=== PATIENT | male | born 1940 | race Caucasian/White ===

== ENCOUNTER 2017-01-01 05:26 | Day surgery (SDC) | payer MEDICARE ==
[~2017-01-01] VITALS: Ht 175.3 cm; Wt 84.3 kg
[2017-01-01] VITALS (14 sets, daily range): BP systolic 116–176; BP diastolic 63–95; PULSE 49–60; RESP 12–20; O2SAT 95–99
[~2017-01-01 05:26] MED LIST: ASPI-973 PO; ATOR20TA PO; CARV12.52 PO; Lactated Ringer's 1,000 ML IV SCH; METF500T4 PO; NITR0.4T6 SL; SACU1TAB7 PO; SPIR25TA3 PO
[2017-01-01] MEDS ORDERED: fentaNYL-PF 50 mCg/mL 2 mL Inj ONE (05:27)
[2017-01-01] MEDS ORDERED: Propofol 10,000 mCg/mL 20 mL Inj ONE (05:27)
[2017-01-01] MEDS ORDERED: CeFAZolin 2 Gm/50 mL D5W IV Premix IV ONE (06:00)
[2017-01-01] MEDS ORDERED: 0.9% Sodium Chloride 1,000 ML IV PRN (07:22)
[2017-01-01] MEDS ORDERED: CeFAZolin Inj 2 GM in IV Premix 1 EACH IV ONE (07:25)
[2017-01-01] MEDS ORDERED: CeFAZolin 2 Gm/50 mL D5W Duplex Bag IV ONE (10:12)
[2017-01-01 11:38] LABS: BASOPHILS % (AUTO) 0.3 % (0-3); EOSINOPHILS % (AUTO) 1.5 % (0-5); MONOCYTES % (AUTO) 9.1 % (4-12); Mean Corpuscular Hemoglobin 30.7 pg (27.0-35.0); Mean Corpuscular Volume 91.8 fL (81-100); NEUTROPHILS % (AUTO) 63.2 % (40-74); Platelet Count 215 bil/L (150-400)
[2017-01-01 11:54] LABS: INR 0.92 ratio
--- NOTE | 2017-01-01 12:14 | PCM.HPANE ---
Patient Data Date of Service: Jan 01, 2017 Surgeon Admitting Provider: Attending Provider:Uli Merchant MD Primary Care Physician:Hyun Obregon Other Provider:Liza Menjivar Anesthesia Reason for Visit Cardiomyopathy Ht/WT & BMI Height (Feet): 5 Height (Inches): 9.00 Weight (Kilograms): 84.300 Body Mass Index 27.53 Allergies Coded Allergies: aspirin (Verified Adverse Reaction, Unknown, GI DISTRESS, 01/01/17) currently takes ASA 81mg with food Past Anesthesia History Anesthesia History: Denies:: Anesthesia Reactions Diabetes History Hx Diabetes?: Yes Current Bedside Blood Glucose: 160 MRSA MRSA: No Medications Reported Medications Spironolactone 25 Mg Ytnzcp48.5 Mg PO DAILY #30 TABLET Ref 0 12/31/16 Metformin 500 Mg Msfrnw650 Mg PO DAILY Ref 0 12/31/16 Sacubitril/Valsartan (Entresto 49 mg-51 mg Tablet)49 Mg-51 Mg Tablet1 Each PO BID 12/31/16 Carvedilol 12.5 Mg Vzgmxp08.5 Mg PO BID Ref 0 12/31/16 Nitroglycerin SL 0.4 Mg Tab.subl0.4 Mg SL 05/29/16 Atorvastatin (Lipitor)20 Mg Ihlorl02 Mg PO DAILY Ref 0 05/29/16 Aspirin 81 Mg Bweuno19 Mg PO DAILY 05/29/16 Discontinued Reported Medications Metformin 500 Mg Dviedl629 Mg PO BID Ref 0 05/29/16 Lisinopril 10 Mg Yatkea78 Mg PO DAILY 30 Days Ref 0 05/29/16 Carvedilol 3.125 Mg Tablet3.125 Mg PO BID Ref 0 05/29/16 History History of ENT Problems?: Yes HEENT History: Positive for:: Dysphagia Denies:: Cataracts Glaucoma Sinus Problem Hx of Heart Problems?: Yes Cardiovascular History: Positive for:: Congestive Heart Failure Hypertension Other History/Comments cardiomyopathy ef 30-35%, nyha class III HF; SAYRA 0.86 Hx of Respiratory Problem?: No Hx Neurologic Problems?: No Hx of GI Problems?: No Musculoskeletal History: Positive for:: Back Injury Hx of Psycho/Social Problems?: No Hx Surgeries?: Yes (circumcision) Hx Any Other Health Problems?: Yes Other History: Denies:: Hospitalization History Blood Transfusions: Positive for:: Accept Blood Products? Denies:: Blood Transfusions Hx Diabetes: YesBedside Blood Glucose: 160 Hx Alcohol Use: NoAlcoholic Drinks Per Day: quit 1 drink vodka daily 3 months priorHx Substance Use: No Smoking Status: Former Smoker Never Smoker Have You Smoked inLast 12 mo: No Stop/Bang Treated for Sleep Apnea?: No Do You Have a CPAP Machine?: No S-Snoring: Do You Snore Loudly: Yes T-Tired: feel tired, fatigued: No O-Obsered: Observed not breath: No P-Blood Pressure: treated: Yes B- Body Mass Index > 35 kg/m2: No A- Age over 50: Yes N- Neck Large Circumference: No G- Gender Male: Yes LAZARO Risk Assessment: High Risk, =/>3 Yes LAZARO Category 2: Yes Risk Assessment Category Category 1A: Patient has history of documented sleep apnea, and HAS NOT received any narcotic, sedative or anesthesia administration during this stay. Category 1B: Patient has history of documented sleep apnea, and HAS received any narcotic , sedative or anesthesia administration during this stay Category 2: Patient has SUSPECTED Obstructive Sleep Apnea, and HAS received any narcotic , sedative or anesthesia administration during this stay. Category 3: Patient has SUSPECTED Obstructive Sleep Apnea and HAS NOT received narcotic, sedative or anesthesia administration during this stay. Category 4: Outpatient in Procedural Areas with known sleep apnea or who screen positive for High Risk via the STOP/BANG questionnaire. Exam Exam Vital Signs Vital Signs Date Time Temp Pulse Resp B/P Pulse Ox O2 Delivery O2 Flow Rate FiO2 01/01/17 11:33 36.6 49 16 149/63 97 Room Air General Appearance: Alert, Oriented X3, Cooperative, No Acute Distress HEENT/AIRWAY: MP 3 Lungs: Clear to Auscultation, Normal Air Movement Heart: Regular Rate/Rhythm, Murmur (III/ BART), Other (Bradycardia) Meds/Labs/Diagnostics Bedside Blood Glucose: 160 Labs Test 01/01/17 11:32 White Blood Count 7.3th/mm3 (3.8-10.1) Red Blood Count 4.01mil/mm3 (4.40-5.80) Hemoglobin 12.3g/dL (13.8-17.2) Hematocrit 36.8% (41.0-50.0) Mean Corpuscular Volume 91.8fL (81-100) Mean Corpuscular Hemoglobin 30.7pg (27.0-35.0) Mean Corpuscular Hemoglobin Concent 33.4% (32.0-37.0) Red Cell Distribution Width 12.4% (12.3-15.4) Platelet Count 215bil/L (150-400) Neutrophils (%) (Auto) 63.2% (40-74) Lymphocytes (%) (Auto) 25.8% (14-46) Monocytes (%) (Auto) 9.1% (4-12) Eosinophils (%) (Auto) 1.5% (0-5) Basophils (%) (Auto) 0.3% (0-3) Plan Impression Patient chart reviewed, patient interviewed and anesthestic plan with risks, benefits, and alternatives discussed, and informed consent obtained. NPO Status: >8h ASA Physical Status: ASA3 Severe Disease Anesthetic Plan: MAC Bene/Risks/Altern/Consents: Yes HP Complete Prior to Induction: Yes Ambrocio Vargas MD Jan 01, 2017 12:14
[2017-01-01] MEDS ORDERED: 0.9% Sodium Chloride 250 ML ONE (12:54)
[2017-01-01] MEDS ORDERED: Bupivacaine-MPF 0.5% 30 mL Inj ONE (12:54)
[2017-01-01] MEDS ORDERED: Heparin 5,000 Units/500 mL NS Premix IV ONE (12:54)
--- NOTE | 2017-01-01 13:40 | NUR ---
[facility] Patient admitted to [facility] bed 7 at 1115. Daughter at bedside. Patient denies pain. HL X 2 placed and labs obtained. Consent in chart and signature confirmed. History and medications reviewed. Pre-procedure teaching done and questions answered.
[2017-01-01] MEDS: 0.9% Sodium Chloride 1,000 ML IV SCH ×2 (15:04→20:36)
[2017-01-01] MEDS ORDERED: Ondansetron 2 mg/mL 2 mL Inj IVPUSH PRN (15:05)
[2017-01-01] MEDS ORDERED: HYDROcodone-APAP 5-325 mg Tablet PO PRN (15:05)
--- NOTE | 2017-01-01 15:57 | PCM.ANEP1 ---
Post Anesthesia Phase 1 PACU Phase 1 Assessment Date of Service: Jan 01, 2017 Vital Signs Vital Signs Date Time Temp Pulse Resp B/P Pulse Ox O2 Delivery O2 Flow Rate FiO2 01/01/17 15:50 60 12 137/78 97 Room Air 01/01/17 15:50 60 12 137/78 97 Room Air 01/01/17 15:45 60 14 116/75 95 Room Air 01/01/17 15:40 60 12 127/66 96 Room Air 01/01/17 11:33 36.6 49 16 149/63 97 Room Air Anesthetic Administered: MAC Level of Alertness: Awake, talking CH's with Equal Strength: Yes Pain: No Nausea or Vomiting: No Oxygen Delivery: Room Air Lungs: Clear to Auscultation, Normal Air Movement Ambrocio Vargas MD Jan 01, 2017 15:57
--- NOTE | 2017-01-01 15:57 | PCM.ANEP2 ---
Post Anesthesia Evaluation ASA/CMS Post Anesthesia Date of Service: Jan 01, 2017 VS in Patient's Normal Range?: Yes Resp Stable; Airway Patent?: Yes CV Function & Hydration Stable: Yes Mental Status Recovered?: Yes Pain control Satisfactory?: Yes N/V Control Satisfactory?: Yes Ambrocio Vargas MD Jan 01, 2017 15:57
--- NOTE | 2017-01-01 16:11 | OP ---
[address] [address] OPERATIVE REPORT PATIENT: NICKY GOLD : 1940 MR#: [id number] ADMIT: 01/01/2017 JOB ID: [id number] DATE OF SURGERY: 01/01/2017 PREOPERATIVE DIAGNOSIS(ES): 1. Severe dilated cardiomyopathy with ejection fraction 30%-35%. 2. Left bundle branch block with QRS duration 179 msec. 3. [place] [employer] class 3 heart failure symptoms. POSTOPERATIVE DIAGNOSIS(ES): 1. Severe dilated cardiomyopathy with ejection fraction 30%-35%. 2. Left bundle branch block with QRS duration 179 msec. 3. [place] [employer] class 3 heart failure symptoms. PROCEDURES PERFORMED: 1. Biventricular ICD implantation with placement of a multi lead ICD generator, RV ICD lead, right atrial lead and coronary sinus left ventricular lead. 2. Coronary sinus venogram. 3. Fluoroscopy. SURGEON: Uli Merchant MD, electrophysiology attending. STORES ASSISTANT: Osman Petty PA-C IMPLANTED DEVICES: 1. [employer] pulse generator, model CD 3369-40Q, serial #[id number]. 2. RV lead [employer], 2088 TC, 52 cm, serial #[id number]. 3. RV lead [employer] 7122Q, 58 cm, serial #[id number]. 4. LV lead, [employer] 1458Q, 86 cm, [id number]. ANESTHESIA: Monitored anesthesia care was provided by the anesthesiology service. INDICATION: The patient is a pleasant 76-year-old man with severe dilated cardiomyopathy, heart failure symptomology, wide left bundle branch block. After discussion of the risks and benefits of Bi V ICD implantation, he opted to proceed. PROCEDURE DESCRIPTION: Following informed consent, the patient was taken to the EP laboratory in a fasting nonsedated state, where he was prepped and draped in the usual sterile fashion. The left infraclavicular region was infiltrated with 40 cc of a 50/50 mixture of bupivacaine and lidocaine. Once adequate anesthesia had been achieved, a 3 cm transverse incision was performed 2 cm below the clavicle. Dissection was carried down to the pectoralis fascia and a pocket was then fashioned using a combination of electrocautery and blunt dissection. Once adequate anesthesia had been achieved, access to the left axillary vein was gotten over the first rib with a micropuncture needle three times with three 0.035, 3 mm J guidewires. Over the first of these, a 7-Sudanese tear-away sheath was advanced. Once it had been removed, an active fixation ICD was advanced to the RV outflow tract and ultimately to the RV apex. The lead was affixed in position using suction fixation screw. The lead was connected to the external analyzer and demonstrated appropriately sensed R waves, impedance, capture threshold. The lead was checked to 10 V and there was no evidence of diaphragmatic stimulation. Attention was now paid to placement of the coronary sinus left ventricular lead over another of the previously deployed J guidewires. A 9-Sudanese tear-away sheath was advanced. Once the guidewire was removed, the [employer] delivery sheath was delivered over a Super CS decapolar EP catheter to engage the coronary sinus. The EP catheter was removed and a manual injection of contrast was performed delineating a large posterolateral branch off of the coronary sinus at the 3 o'clock position along the mitral annulus. This was chosen as our position of choice. A quadripolar LV lead was brought to the field and advanced through the branch of choice over a Whisper wire. The lead was connected to the external analyzer and demonstrated appropriately sensed R waves, impedance, capture threshold. It was checked to 10 V. There was no evidence of diaphragmatic stimulation. The Whisper wire was removed and the finishing stylet was placed. The short 9-Sudanese sheath was slit loose. The long sheath was maintained in place for stability while the atrial lead was placed. Attention was now on placement of the right atrial lead. Over the last of the previously deployed J guidewires, a 6-Sudanese tear-away sheath was advanced. Once the guidewire was removed, an active fixation was advanced to the right atrial appendage. It was affixed in position using an associated fixation screw and this was connected to the external analyzer and demonstrated appropriately sensed P waves, impedance, capture threshold. It was checked to 10 V and there was no evidence of diaphragmatic stimulation. Finally, the long sheath was slit loose monitoring the stability of the LV lead. The lead maintained its position. Once the position and redundancy of all three leads had been confirmed with multiple fluoroscopic views, the leads were anchored to the prepectoralis fascia using their associated anchoring sleeves and two Ethibond sutures. The pocket was copiously irrigated with antibiotic solution. It was connected to generator. The generator was placed in the pocket and affixed to the floor of the pocket using 1-0 Ti-Cron suture. The incision was then closed with running layers of absorbable suture. The wound was dressed with skin adhesive and a small dressing. At the end the procedure, the needle, sponge, and instrument counts were all correct. COMPLICATIONS: None. ESTIMATED BLOOD LOSS: Negligible. DEVICE MEASURED DATA: 1. Right atrial lead 3.3 mV, 440 ohms, 0.75 V at 0.5 msec. 2. RV lead 12 mV, 450 ohms, 0.5 V at 0.5 msec. 3. LV lead, 390 ohms, 0.75 V at 0.5 msec (T4 to RV coil). FINAL PROGRAM PARAMETERS: 1. DDDR 60-130 beats per minute. 2. VF zone at 200 beats per minute. 3. VT zone at 171 beats per minute. 4. VT monitor zone at 150 beats per minute. IMPRESSION: Successful Bi V ICD implantation. PLAN: 1. Stat portable chest x-ray. 2. PA and lateral chest x-ray in the morning. 3. IV Ancef through tomorrow. 4. Keflex x7 days. 5. Wound check in one week. ATTENDING STATEMENT: Uli Merchant MD, electrophysiology attending, was present for and supervised/performed all aspects of this procedure.
--- NOTE | 2017-01-01 16:21 | DRSVH ---
PROCEDURE: X-RAY CHEST ONE VIEW, PORTABLE ([id number]) INDICATIONS: For new leads placed TECHNIQUE: One view of the chest was acquired. COMPARISON: [facility], CR, XR CHEST 2VW, 10/18/2015, 14:01. FINDINGS: Surgical changes and devices: Left-sided pacer. Lungs and pleura: No pleural effusions or pneumothorax. Lungs are clear. Mediastinum: Mediastinal contours appear normal. Heart size is normal. Bones and chest wall: No suspicious bony lesions. Overlying soft tissues appear unremarkable. IMPRESSION: No acute process. Dictated by: Audrey Martin M.D. on 01/01/2017 at 16:17 Approved by: Audrey Martin M.D. on 01/01/2017 at 16:19
--- NOTE | 2017-01-01 18:41 | NUR ---
[facility] Patient return to [facility] from label folder at 1540. Daughter at bedside. Patient denies pain. Left chest incision without bleeding or hematoma. Ice pack X 2 hours with HOB up 45%. Chest X-Ray and ECG12 complete. Patient ate dinner and voids pr urinal. Left arm sling placed prior to transfer. Transfer by to room 2022 at 1815. Report to receiving RN.
[2017-01-01] MEDS: SACUBITRIL PO SCH (20:30)
[2017-01-01] MEDS: VALSARTAN PO SCH (20:30)
--- NOTE | 2017-01-01 21:49 | NUR ---
POSTOP TRANSFER TO [facility] Pt arrived to [facility] from [facility] just before shift change A&Ox3, off bedrest and able to ambulate in the room. Dressing to the left upper chest was tender and slightly raised, but CDI. Dressing to be changed in the AM by RN. HR paced @ 60, No c/o pain, SOB, or discomfort. No other issues noted at this time.
[2017-01-01] MEDS: CeFAZolin Inj 1 GM in IV Premix 1 EACH IV SCH (22:22)
[2017-01-02 00:10] VITALS: BP 158/83; PULSE 60; RESP 18; O2SAT 97
[2017-01-02 02:15] LABS: APPEARANCE,URINE CLEAR (CLEAR,HAZY); COLOR,URINE STRAW (YELLOW); OCCULT BLOOD,URINE NEGATIVE (NEGATIVE); UROBILINOGEN,URINE NORMAL (NORMAL)
[2017-01-02 04:13] VITALS: BP 147/79; PULSE 61; RESP 18; O2SAT 96
[2017-01-02] MEDS ORDERED: CeFAZolin Inj 1 GM in IV Premix 1 EACH IV SCH (04:31)
[2017-01-02 06:00] VITALS: PULSE 60
[2017-01-02 08:00] VITALS: PULSE 61
--- NOTE | 2017-01-02 08:19 | DRSVH ---
PROCEDURE: X-RAY CHEST, TWO VIEWS ([id number]) INDICATIONS: For new lead placement TECHNIQUE: 2 views of the chest were acquired. COMPARISON: [facility], CR, XR CHEST 1VW (PORTABLE), 01/01/2017, 15:57. [facility], CR, XR CHEST 2VW, 10/18/2015, 14:01. FINDINGS: Surgical changes and devices: Stable positioning of left chest AICD. Lungs and pleura: No pleural effusions or pneumothorax. Lungs are clear. Chronic elevation right h emidiaphragm. Mediastinum: Mediastinal contours are normal. Heart size is normal. Bones and chest wall: No suspicious bony abnormalities. Soft tissues appear unremarkable. IMPRESSION: Stable chest post pacer placement. Dictated by: Paul Majano Jose Interpreted: Jessica Ochoa MD on 01/02/2017 at 8:18 Transcribed by: RADHA on 01/02/2017 at 8:19 Approved by: Jessica Ochoa M.D. on 01/02/2017 at 9:07
[2017-01-02] MEDS: VALSARTAN PO SCH (08:30)
[2017-01-02] MEDS: SACUBITRIL PO SCH (08:30)
--- NOTE | 2017-01-02 09:05 | PCM.DIMED ---
Discharge Instructions Date of Service Jan 02, 2017 Dates of Hospitalization Discharge Diagnosis Discharge Diagnosis Nonischemic Cardiomyopathy Left Bundle Branch Block Hypertension Diabetes Diet Heart Healthy, Diabetic Activity Other (Keep incision dry one day. Do not extend left elbow high above shoulder for one month. Do not lift, push or pull more than 10 lbs with the left arm for one month.) Call your provider Fever or Chills, Bleeding, Excessive diarrhea Patient Instructions Follow-up in: 1 week Mid-level Provider (F9): Osman Petty PA-C Follow-up with Mid-level in: 6 weeks Osman Petty PA-C Jan 02, 2017 09:05
[2017-01-02 09:15] VITALS: BP 161/84; PULSE 76; RESP 16; O2SAT 96
[2017-01-02] MEDS ORDERED: CEPH500C PO (09:23)
--- NOTE | 2017-01-02 09:56 | NUR ---
Arm sling Pt states he would like to keep sling on, although said he could take off now. Pt stated he lives with daughter and takes care of twin 3 yo grandchildren and 8 year old. Stated it would help him remember to protect his pacer site. Care continues.
[2017-01-02] MEDS ORDERED: CeFAZolin 2 Gm/50 mL D5W IV Premix IV ONE (10:00)
--- NOTE | 2017-01-02 10:31 | DIS ---
[address] [address] DISCHARGE SUMMARY PATIENT: NICKY GOLD : 1940 MR#: [id number] ADMIT: 01/01/2017 JOB ID: [id number] DIS: REASON FOR ADMISSION: Biventricular ICD implant. CHIEF COMPLAINT: Exertional dyspnea and fatigue. BRIEF HISTORY: The patient, a pleasant 76-year-old man with a severe nonischemic cardiomyopathy and an LV ejection fraction of 30% to 35%, has a left bundle branch block and exertional fatigue. He was advised of his risk of cardiac arrest, as well as the possible benefits of biventricular pacing to resynchronize the ventricles. COURSE IN HOSPITAL: The patient was admitted through the SICU and taken to the catheterization laboratory, where he received the biventricular, 3-lead pacing ICD system without incident. He was then taken back to the [facility] for recovery from sedation and then transferred up to the [facility] for overnight care, where he did well. In the morning he did not have much pain at the ICD site, it was closed and dry. There was no hematoma. Device evaluation showed excellent capture and sensing thresholds. Chest x-ray revealed no pneumothorax, and good lead positions were maintained. He felt well for discharge home and denied lightheadedness, dyspnea, or chest pain. DISPOSITION: The patient was discharged home in good condition with a followup appointment at the [facility] Cardiology office in one week. He was asked not to extend his left elbow high above his shoulder for one month and to not lift, push, or pull more than 10 pounds with the left arm for one month. He will follow his heart healthy and diabetic diet, and take medications as prescribed. DISCHARGE MEDICATIONS: 1. Cephalexin 500 mg b.i.d. for 1 week. 2. Aspirin 81 mg daily. 3. Atorvastatin 20 mg daily. 4. Carvedilol 12.5 mg b.i.d. 5. Metformin 500 mg daily. 6. Nitroglycerin sublingual 0.4 mg p.r.n. chest pain. 7. Entresto 49 mg/51 mg tablet 1 b.i.d. 8. Spironolactone 12.5 mg daily. FINAL DIAGNOSES: 1. Severe nonischemic cardiomyopathy. 2. Left bundle branch block. 3. Diabetes. 4. Hypertension.
--- NOTE | 2017-01-02 10:51 | NUR ---
Discharge Patient discharged at approximately 1040. Pt stated his daughter would be here at 1130 with his clothes and to take him home. Patient given educational material on Pacemaker and Pacemaker booklet, next dose to taken for all medications including new prescription clearly written with dates and times. Pt acknowledged and understood information. IV's DC'd with catheter intact. Tele DC'd patient monitor notified. Addendum: 01/02/17 at 1213 by MAHAD PICKETT RN Patient's daughter just arrived at 1212 to take patient home. Escorted by RAYMOND to the door.
[2017-01-02] MEDS: 0.9% Sodium Chloride 1,000 ML IV SCH (11:04)
[2017-04-11] MEDS ORDERED: FUR20 PO (16:21)
== END 2017-01-02 12:12 | disposition home or self-care (01) ==
LOC: SOUO 05:26 → PCC 18:32 → SOUO 01-02 12:12
PROVIDERS: ATTEND Internal Medicine Cardiovascular Disease
DX: I42.0 Dilated cardiomyopathy (principal); Z00.6 Encounter for examination for normal comparison and control in clinical research program; I44.7 Left bundle-branch block, unspecified; I50.9 Heart failure, unspecified; I25.119 Atherosclerotic heart disease of native coronary artery with unspecified angina pectoris; I12.9 Hypertensive chronic kidney disease with stage 1 through stage 4 chronic kidney disease, or unspecified chronic kidney disease; E11.22 Type 2 diabetes mellitus with diabetic chronic kidney disease; N18.9 Chronic kidney disease, unspecified; Z79.84 Long term (current) use of oral hypoglycemic drugs; E78.5 Hyperlipidemia, unspecified; I35.0 Nonrheumatic aortic (valve) stenosis; Z79.82 Long term (current) use of aspirin
CPT/HCPCS: 33225; 33249; 36415; 71010; 71020; 80048; 81000; 85025; 85610; 93005; 99152; 99153; C1769; C1777; C1882; C1892; C1898; C1900; J0690; J1644; J3010; J7050; Q9967

== ENCOUNTER 2017-01-26 11:51 | Emergency (ER) | payer MEDICARE ==
[~2017-01-26] VITALS: Ht 175.3 cm; Wt 81.8 kg
[~2017-01-26 11:51] MED LIST changes: +CEPH500C PO; -Lactated Ringer's 1,000 ML IV SCH
[2017-01-26 11:54] VITALS: BP 181/86; PULSE 60; RESP 14; O2SAT 98
--- NOTE | 2017-01-26 12:17 | ED.REPORT ---
HPI-Abd Pain M 40 and Over Date of Service Jan 26, 2017 ED Provider: Amari Montiel MD Pt is a 76 year old male with a hx of DM, LBBB, and recent pacemaker insertion presenting to the ED complaining of vomiting onset 2 days ago. He denies diarrhea, headache, runny nose, cough, recent sick contacts. He states that he has been unable to sleep due to the vomiting. He last vomited at 0900 today. Nursing Notes Stated Complaint: VOMITING Chief Complaint: Male Abdominal Pain Nursing Notes Reviewed: Yes Allergies: Coded Allergies: aspirin (Verified Adverse Reaction, Unknown, GI DISTRESS, 01/26/17) currently takes ASA 81mg with food Scheduled Aspirin (Aspirin) 81 Mg Tablet 81 MG PO DAILY Atorvastatin (Lipitor) 20 Mg Tablet 20 MG PO DAILY Carvedilol (Carvedilol) 12.5 Mg Tablet 12.5 MG PO BID Metformin (Metformin) 500 Mg Tablet 500 MG PO BID Sacubitril/Valsartan (Entresto 49 mg-51 mg Tablet) 49 Mg-51 Mg Tablet 1 EACH PO BID Spironolactone (Spironolactone) 25 Mg Tablet 12.5 MG PO Q2DAY Scheduled PRN Ondansetron ODT (Zofran ODT) 4 Mg Tablet 4 MG PO Q4H PRN PRN For Nausea Miscellaneous Medications Nitroglycerin SL (Nitroglycerin SL) 0.4 Mg Tab.subl 0.4 MG SL General Time Seen by MD: 12:15 Chief Complaint Other (Vomiting ) Hx Obtained From: Patient Arrived By: Walk-in Sudden in Onset?: No Onset Occurred: 2 days ago Symptom Duration: Since onset Progression since Onset: Unchanged Severity: Current: No pain currently Severity: Maximum: No pain Recent Healthcare: No recent doctor visit, No recent hospitalization, Previous surgery Similar Sx Previous: No Past Medical History Past Medical History Reported: LBBB, cardiomyopathy, kidney problems Past Surgical History Recent pacemaker/defibrillator insertion Smoking History Former Smoker, Never Smoker Ambulatory Status Independent Review of Systems Respiratory: Denies: Non-productive cough GI: Reports: Vomiting, Denies: Diarrhea Complete sys rev & neg: except as marked. Ears / Nose / Throat: Denies: Nasal congestion Neurologic: Denies: Headache Physical Exam Initial Vital Signs Vital Signs (First) Date Time Temp Pulse Resp B/P Pulse Ox O2 Delivery O2 Flow Rate FiO2 01/26/17 11:54 36.5 60 14 181/86 98 Room Air Initial VS: Reviewed Head / Eyes: Atraumatic, Normocephalic, PERRL ENT: Mucous membranes moist, Conjunctiva normal, No scleral icterus Neck: Supple, Non-tender, Full range of motion Skin: Warm, Dry, No cyanosis Neurologic: Alert, Oriented, Nonfocal Psychiatric: Mood/affect normal, Behavior normal, Normal thought content General/Constitutional: Awake, Alert, No acute distress, Well appearing Respiratory / Chest: Breath sounds NL, Breath sounds = bilat, No respiratory distress, No rales, No rhonchi, No wheezing Cardiovascular: Heart rate NL Heart Sounds / Murmur: Positive: Systolic murmur present.. (III/) Abdomen: Atraumatic, No guarding, No rebound Tenderness/Guarding/Rebound: Positive: Tender diffuse Interpretation & Diagnostics Lab Results Interpretation Result Diagram: 01/26/17 1258 01/26/17 1258 Test 01/26/17 12:58 White Blood Count 14.0th/mm3 (3.8-10.1) Red Blood Count 4.53mil/mm3 (4.40-5.80) Hemoglobin 13.7g/dL (13.8-17.2) Hematocrit 39.8% (41.0-50.0) Mean Corpuscular Volume 87.9fL (81-100) Mean Corpuscular Hemoglobin 30.2pg (27.0-35.0) Mean Corpuscular Hemoglobin Concent 34.4% (32.0-37.0) Red Cell Distribution Width 12.9% (12.3-15.4) Platelet Count 214bil/L (150-400) Neutrophils (%) (Auto) 75.5% (40-74) Lymphocytes (%) (Auto) 13.7% (14-46) Monocytes (%) (Auto) 10.4% (4-12) Eosinophils (%) (Auto) 0.1% (0-5) Basophils (%) (Auto) 0.1% (0-3) Sodium Level 140mEq/L (134-144) Potassium Level 3.7mEq/L (3.5-5.2) Chloride Level 96mEq/L (97-108) Carbon Dioxide Level 27mmol/L (18-29) Blood Urea Nitrogen 29mg/dL (8-27) Creatinine 1.25mg/dL (0.76-1.27) Estimat Glomerular Filtration Rate 60mL/min (>59) Glucose Level 187mg/dL (60-99) Calcium Level 9.5mg/dL (8.5-10.1) Magnesium Level 1.7mg/dL (1.6-2.6) Total Bilirubin 1.7mg/dL (0.0-1.2) Aspartate Amino Transf (AST/SGOT) 18U/L (0-50) Alanine Aminotransferase (ALT/SGPT) 14U/L (0-44) Alkaline Phosphatase 78U/L (25-160) Total Protein 7.7g/dL (6.4-8.4) Albumin 4.1g/dL (3.4-5.0) Lipase 32U/L (13-60) ECG Interpretation ECG Interpretation: Atrial-sensed ventricular-paced rhythm. Time: 12:16 Interpreted by: ED physician Normal ECG Interpretation: Normal rate (60) Re-Eval/Medical Decision Time of Eval: 14:45 Patient Status: Condition improved Re-Evaluation/Progress Note: Pt reports that he is still nauseated, but does not feel like he will vomit, and has not vomited since he arrived in the ED. Counseled Regarding: Diagnosis, Lab results, Need for follow-up, When/why to return to ED Discharge & Departure Primary Impression: Nausea & vomiting Vomiting type: unspecified Vomiting Intractability: non-intractable Qualified Code: R11.2 - Nausea with vomiting, unspecified Disposition: Home Vital Signs - All Vital Signs Date Time Temp Pulse Resp B/P Pulse Ox O2 Delivery O2 Flow Rate FiO2 01/26/17 14:15 36.7 60 189/79 96 Room Air 01/26/17 11:54 36.5 60 14 181/86 98 Room Air )( All Prior VS Reviewed: Yes Condition: Improved Patient Instructions: Acute Nausea and Vomiting (ED) Additional Instructions: No dangerous cause for the nausea and vomiting is discovered today. I recommend oral hydration by taking small sips of clear liquids frequently. Use ondansetron as needed for nausea. Follow-up in 2 or 3 days if not significantly improved, sooner if worse. Referrals: Hyun Obregon (PCP) ShondaUli MD Attestation Portions of this note were transcribed by Mirna Rodriguez. I, Dr. Montiel personally performed the history, physical exam and medical decision-making; I reviewed and confirmed the accuracy of the information in the transcribed note. Signed by: Levi Varela, 01/26/2017 and 1449. copies to: Hyun Obregon; Uli Merchant MD, Kirk H MD Jan 26, 2017 12:17 MIRNA RODRIGUEZ Jan 26, 2017 12:23
[2017-01-26] MEDS ORDERED: 0.9% Sodium Chloride 1,000 ML IV ONE (12:23)
[2017-01-26] MEDS: Ondansetron 2 mg/mL 2 mL Inj IVPUSH PRN ×2 (12:52→14:47)
[2017-01-26 13:16] LABS: BASOPHILS % (AUTO) 0.1 % (0-3); EOSINOPHILS % (AUTO) 0.1 % (0-5); MONOCYTES % (AUTO) 10.4 % (4-12); Mean Corpuscular Hemoglobin 30.2 pg (27.0-35.0); Mean Corpuscular Volume 87.9 fL (81-100); NEUTROPHILS % (AUTO) 75.5 % (40-74); Platelet Count 214 bil/L (150-400)
[2017-01-26 13:38] LABS: Magnesium 1.7 mg/dL (1.6-2.6)
[2017-01-26 14:15] VITALS: BP 189/79; PULSE 60; O2SAT 96
[2017-01-26] MEDS ORDERED: ONDA4TAB9 PO (14:46)
[2017-04-11] MEDS ORDERED: FUR20 PO (16:21)
== END 2017-01-26 14:48 | disposition home or self-care (01) ==
LOC: SED 11:51
DX: R11.2 Nausea with vomiting, unspecified (principal); I42.9 Cardiomyopathy, unspecified; Z79.82 Long term (current) use of aspirin; Z79.84 Long term (current) use of oral hypoglycemic drugs; Z87.891 Personal history of nicotine dependence; Z95.810 Presence of automatic (implantable) cardiac defibrillator; Z88.8 Allergy status to other drugs, medicaments and biological substances
CPT/HCPCS: 36415; 80053; 83690; 83735; 85025; 93005; 96361; 96374; 96376; 99285; J2405; J7030

== ENCOUNTER 2017-02-05 10:09 | Inpatient (IN) | payer MEDICARE ==
[~2017-02-05] VITALS: Ht 175.3 cm; Wt 80.3 kg
[2017-02-05] VITALS (10 sets, daily range): BP systolic 99–154; BP diastolic 43–74; PULSE 57–66; RESP 13–20; O2SAT 97–100
[~2017-02-05 10:09] MED LIST changes: -CEPH500C PO; +ONDA4TAB9 PO
--- NOTE | 2017-02-05 10:36 | ED.REPORT ---
HPI-GI Bleed Date of Service Feb 05, 2017 ED Provider: Amari Montiel MD The patient is a 76 year old male with history of diabetes mellitus and hypertension who was sent to the emergency department from clinic today for low blood pressure and concern for anemia. The patient had experienced 2 days of abdominal pain, back pain, nausea, vomiting, and black stools. He has not had a bowel movement or vomited in 2 days. Today the patient feels like lightheaded and generally weak. The lightheadedness is worse with standing. He fell today but denies any injuries. He is not on any blood thinners. He does not take NSAIDS regularly. Nursing Notes Stated Complaint: WEAK/BLACK STOOL Chief Complaint: General Complaint Nursing Notes Reviewed: Yes Allergies: Coded Allergies: aspirin (Verified Adverse Reaction, Unknown, GI DISTRESS, 01/26/17) currently takes ASA 81mg with food Scheduled Aspirin (Aspirin) 81 Mg Tablet 81 MG PO DAILY Atorvastatin (Lipitor) 20 Mg Tablet 20 MG PO DAILY Carvedilol (Carvedilol) 12.5 Mg Tablet 12.5 MG PO BID Metformin (Metformin) 500 Mg Tablet 500 MG PO BID Sacubitril/Valsartan (Entresto 49 mg-51 mg Tablet) 49 Mg-51 Mg Tablet 1 EACH PO BID Spironolactone (Spironolactone) 25 Mg Tablet 12.5 MG PO Q2DAY Miscellaneous Medications Nitroglycerin SL (Nitroglycerin SL) 0.4 Mg Tab.subl 0.4 MG SL General Time Seen by Provider: 10:43 Chief Complaint Chief Complaint: Other (low blood counts) Arrived By: Walk-in Onset Occurred: 5 days ago Symptom Duration: 2 days Progression Since Onset: Resolved Past Medical History Past Medical History Reported: LBBB, cardiomyopathy, kidney problems Diabetes mellitus Hypertension Past Surgical History Recent pacemaker/defibrillator insertion Family History Noncontributory Smoking History Former Smoker, Never Smoker Social History Other Social History: Local resident Ambulatory Status Independent Review of Systems Constitutional: Reports: Weakness - generalized GI: Reports: Abdominal pain (resolved now), Melena (resolved now), Nausea ( resolved now), Vomiting (resolved now) Neurologic: Reports: Lightheaded, Weakness Complete sys rev & neg: except as marked. Musculoskeletal: Reports: Back pain (resolved now) Physical Exam Initial Vital Signs Vital Signs (First) Date Time Temp Pulse Resp B/P Pulse Ox O2 Delivery O2 Flow Rate FiO2 02/05/17 10:18 36.3 60 16 99/53 98 Room Air Initial VS: Reviewed ENT: Mucous membranes moist, No scleral icterus Neck: Supple, Non-tender, Full range of motion Lymphatic: No lymphadenopathy Extremities: Vascular intact, Neuro intact Skin: Warm, Dry, No cyanosis Neurologic: Alert, Oriented, Nonfocal Psychiatric: Mood/affect normal, Behavior normal, Normal thought content General/Constitutional: Awake, Alert, Cooperative Appearance / Presentation: Positive: Pale Respiratory / Chest: Atraumatic, Breath sounds NL, Breath sounds = bilat, No respiratory distress, No rales, No rhonchi, No wheezing Cardiovascular: Heart rate NL, Regular rhythm, Heart sounds NL, No murmurs, No rubs, Cap refill not delayed, Peripheral circulation NL Lower Ext Edema: Positive: Ankle, Bilateral 2+, Knee, Thigh (mid leg) Abdomen: Atraumatic, Soft, Non-tender, No guarding, No rebound, BS normoactive , No distention, No palpable mass, No pulsatile mass Rectum / Perineum: No gross blood Rectal for Blood: Positive: Blood - occult heme + Very dark brown stool. Hard stool in rectal vault. Head / Eyes: Normocephalic, PERRL, EOMI Conjunctiva / Sclera: Positive: Pallor Interpretation & Diagnostics Lab Results Interpretation Result Diagram: 02/05/17 1114 02/05/17 1114 Test 02/05/17 11:14 White Blood Count 8.4th/mm3 (3.8-10.1) Red Blood Count 2.04mil/mm3 (4.40-5.80) Hemoglobin 6.1g/dL (13.8-17.2) Hematocrit 18.8% (41.0-50.0) Mean Corpuscular Volume 92.2fL (81-100) Mean Corpuscular Hemoglobin 29.9pg (27.0-35.0) Mean Corpuscular Hemoglobin Concent 32.4% (32.0-37.0) Red Cell Distribution Width 12.7% (12.3-15.4) Platelet Count 282bil/L (150-400) Neutrophils (%) (Auto) 67.7% (40-74) Lymphocytes (%) (Auto) 19.5% (14-46) Monocytes (%) (Auto) 11.1% (4-12) Eosinophils (%) (Auto) 1.1% (0-5) Basophils (%) (Auto) 0.2% (0-3) Prothrombin Time 10.0sec (8.1-12.5) Prothromb Time International Ratio 0.94ratio Sodium Level 135mEq/L (134-144) Potassium Level 4.1mEq/L (3.5-5.2) Chloride Level 101mEq/L (97-108) Carbon Dioxide Level 21mmol/L (18-29) Blood Urea Nitrogen 32mg/dL (8-27) Creatinine 1.48mg/dL (0.76-1.27) Estimat Glomerular Filtration Rate 49mL/min (>59) Glucose Level 171mg/dL (60-99) Calcium Level 7.5mg/dL (8.5-10.1) Total Bilirubin 0.6mg/dL (0.0-1.2) Aspartate Amino Transf (AST/SGOT) 57U/L (0-50) Alanine Aminotransferase (ALT/SGPT) 20U/L (0-44) Alkaline Phosphatase 61U/L (25-160) Total Protein 6.1g/dL (6.4-8.4) Albumin 3.1g/dL (3.4-5.0) Hold [place] Top Tube Received (Received) ECG Interpretation ECG Interpretation: Atrial-sensed ventricular-paced rhythm Rate: 60 Time: 11:08 Interpreted by: ED physician Re-Eval/Medical Decision Source of Hx: Old records Re-Evaluation/Progress : Time of Eval: 10:49 Re-Evaluation/Progress Note: Discussed plan for probable admission. Consultation #1: Referral / Consult Name: Reddy Alexander MD Call Returned at: 12:31 Note: Spoke with on-call bench assembler electrical. He agrees to consult. Consultation #2: Referral / Consult Name: Don Chiu MD Consulted With: Hospitalist Requested Call at: 12:32 Call Returned at: 13:02 Label Pinker: Will see patient, Agrees with eval, Agrees with plan, Accepts admit Counseled Regarding: Diagnosis, Lab results, Need for admission Discharge & Departure Impression: Primary Impression: GI bleed GI bleed type/associated pathology: unspecified gastrointestinal hemorrhage type Qualified Code: K92.2 - Gastrointestinal hemorrhage, unspecified Additional Impression: Anemia Anemia type: unspecified type Qualified Code: D64.9 - Anemia, unspecified Disposition: ADMITTED TO HOSPITAL Discharge Condition All VS Reviewed: Yes Condition: Stable Referrals: Hyun Obregon (PCP) Levi Attestation Portions of this note were transcribed by Jacqueline Burns. I, Dr. Montiel personally performed the history, physical exam and medical decision-making; I reviewed and confirmed the accuracy of the information in the transcribed note. Signed by: Levi Terry, 02/05/2017 at 1310. copies to: Hyun Obregon Kirk H MD Feb 05, 2017 10:35 Jacqueline Burns Feb 05, 2017 10:50 Amari Montiel MD Feb 05, 2017 10:35 Jacqueline Burns Feb 05, 2017 10:50
[2017-02-05] MEDS ORDERED: Pantoprazole 4 mg/mL 10 mL Inj IVPUSH ONE (10:50)
[2017-02-05 11:29] LABS: BASOPHILS % (AUTO) 0.2 % (0-3); EOSINOPHILS % (AUTO) 1.1 % (0-5); MONOCYTES % (AUTO) 11.1 % (4-12); Mean Corpuscular Hemoglobin 29.9 pg (27.0-35.0); Mean Corpuscular Volume 92.2 fL (81-100); NEUTROPHILS % (AUTO) 67.7 % (40-74); Platelet Count 282 bil/L (150-400)
[2017-02-05 11:53] LABS: INR 0.94 ratio
[2017-02-05] MEDS: Pantoprazole 8 mg/Hr Infusion IV SCH ×2 (13:18)
--- NOTE | 2017-02-05 13:20 | PCM.CHPMED ---
Subjective Date of Service: Feb 05, 2017 Provider requesting consult: Amari Montiel MD Primary Physician: Admitting Physician: Primary Care Physician: Hyun Obregon Attending Physician: Chief Complaint: Chief Complaint: REASON FOR GI CONSULT: Acute anemia suspected to be secondary to GI losses in patient with history of melena History of Present Illness: GASTROENTEROLOGY CONSULT NOTE Mr. Marks is a pleasant 76 year old gentleman with history of severe non- ischemic cardiomyopathy s/p biventricular ICD placement, non-insulin dependent diabetes mellitus, and HTN, that presented to [facility] at request of PCP to evaluate acute, symptomatic anemia with associated melena. GI was consulted to assist in evaluation of etiology. Patient shares that for the recent two weeks prior to admission, he has been feeling ill with bouts of nausea, vomiting, weakness, fatigue, and dark, tarry stools, abdominal pain with radiation to upper back. Denies any history of similar. Denies any associated fever or chills. Family is present at bedside, and confirms findings. Patient states that he does not chronically use NSAID or high-dose ASA therapies. Denies any recent EtOH ingestion, but does state history of 'years' of 1-2 shots of vodka daily. No history tobacco or substance use. Denies any personal history of GI issues, and states most recent colonoscopy was completed within recent months at [place] in [place], and he reports that a polyp was seen and biopsied, but no other alarming findings were relayed. Denies any history of EGD. States family history of colon cancer, including first degree relative of sister, but no known Celiac or IBD. States extensive family history of gastric ulcerations, including parent and siblings. Was seen in ED approx two weeks prior to this visit when nausea and vomiting initiated. HH at that time was 13.7/39.8. Labs today: HH 6.1/18.8. Two units pRBC ordered by ED physician and awaiting delivery to initiate transfusion. PPI therapy also initiated. Review of Systems: Complete ROS obtained; pertinent positives and negatives per HPI PMH Past Medical History Severe non-ischemic cardiomyopathy s/p biventricular ICD HTN DM2 Surgical History Reports: Recent ICD placement Denies: History of GI interventions, including gallbladder, appendix Reports: Colonoscopy at [place] within recent months to this admission Home Medications From [place] from ICD placement 12/2016: 1. Cephalexin 500 mg b.i.d. for 1 week. 2. Aspirin 81 mg daily. 3. Atorvastatin 20 mg daily. 4. Carvedilol 12.5 mg b.i.d. 5. Metformin 500 mg daily. 6. Nitroglycerin sublingual 0.4 mg p.r.n. chest pain. 7. Entresto 49 mg/51 mg tablet 1 b.i.d. 8. Spironolactone 12.5 mg daily. Will need to be verified by reconciliation team Allergies: Coded Allergies: aspirin (Verified Adverse Reaction, Unknown, GI DISTRESS, 01/26/17) currently takes ASA 81mg with food Family History Family History GI ulcerations noted in multiple family members: parent and siblings Denies any history of known Celiac, IBD Reports: Sister with colon cancer, unknown details/type Social History Hx Alcohol Use: Yes (1-2 shots vodka daily x'years'; stopped approx 6 months ago)Hx Substance Use: No Smoking Status: Never Smoker (denies history tobacco use) Exam Vital Signs Vital Sign - Last Date Time Temp Pulse Resp B/P Pulse Ox O2 Delivery O2 Flow Rate FiO2 02/05/17 12:54 59 15 119/52 100 Room Air 02/05/17 10:18 36.3 General: Alert, Oriented X3, Cooperative, No Acute Distress Head: Facial Expression & Appearance (equal/symmetric and appropriate) Eyes: Scleral Anicteric, Other (pale conjunctiva) Nose: Mucous Membr Moist/[place] Mouth: Mucous Membr Moist/[place] Chest & Lungs: Auscultation (clear bilaterally with adequate air flow all lawrence), No adventitious breath sounds Cardiovascular: Regular Rate/Rhythm, Murmur (systolic III/) Pulses: Radial (equal and bilateral), Post Tibial (equal and bilateral) Extremities: Warm, No Edema Neurological: Grossly Neurologically Intact, Cranial Nerves 2-12 Intact, Normal Speech (without slur), Strength Normal 4/4 ext Additional Information: Psych: Appropriate mood, affect, and responses to questioning; good insight and judgment Lab and Diagnostics Result Diagram: 02/05/17 1114 02/05/17 1114 Assessment & Plan Assessment GASTROENTEROLOGY CONSULT NOTE Mr. Marks is a pleasant 76 year old gentleman with history of severe non- ischemic cardiomyopathy s/p biventricular ICD placement, non-insulin dependent diabetes mellitus, and HTN, that presented to [facility] at request of PCP to evaluate acute, symptomatic anemia with associated melena. GI was consulted to assist in evaluation of etiology. Assessments - Acute symptomatic anemia suspected to be secondary to UGIB with associated episodes melena Recs - EGD tentative 02/06 at 1330 - NPO midnight - Monitor HH, transfuse prn - PPI gtt - Hold anticoagulants Thank you for this consult, we will follow along at this time, with plans for endoscopy 02/06 at approx 1300. Total time: 60 minutes Problems: GI Prophylaxis: Proton Pump Inhibitor Vicky Gardiner DO Feb 05, 2017 13:20 Reddy Alexander MD Feb 05, 2017 13:58
[2017-02-05] MEDS ORDERED: 0.9% Sodium Chloride 1,000 ML IV SCH (13:24)
[2017-02-05] MEDS ORDERED: Pantoprazole Inj 80 MG in 0.9% Sodium Chloride 80 ML IV SCH (13:25)
[2017-02-05] MEDS ORDERED: Ondansetron 2 mg/mL 2 mL Inj IVPUSH PRN (13:25)
[2017-02-05] MEDS ORDERED: Polyethylene Glycol (PEG) 17 Gm Powder PO PRN (13:25)
[2017-02-05] MEDS ORDERED: Alum-Mag Hydrox-Simeth 30 mL Suspension PO PRN (13:25)
--- NOTE | 2017-02-05 13:48 | NUR ---
Admit Pt arrived to [facility] rm 1026 via w/c from the ED. Rec'd report from Diane LEDEZMA. Pt a&ox3, IV currently SL. Oriented to room and call light completed by ACOUSTICAL TILE PATTERNMAKER, admission completed by admit RN. Bed down and locked, call light w/in reach. [place] alarm activated.
[2017-02-05] MEDS ORDERED: 0.9% Sodium Chloride 250 ML ONE (15:23)
--- NOTE | 2017-02-05 15:43 | PCM.HPMED ---
Subjective Date of Service Feb 05, 2017 Primary Provider: Admitting Physician: Don Chiu MD Primary Care Physician: Hyun Obregon Attending Physician: Don Chiu MD Chief Complaint: Nausea and vomiting/2 weeks Dark stool/few days Near-syncope/1 day History of Present Illness: Mr. Marks is a pleasant 76 year old gentleman with history of severe non- ischemic cardiomyopathy s/p biventricular ICD placement on 01/01/17, non-insulin dependent diabetes mellitus, and HTN, who presented to [facility] with nausea and vomiting of 2 weeks and dark stool of 1 week. He states he gets epigastric pain when he takes aspirin and listed as allergy. He was off aspirin for many years but started on 6 months ago. He had uneventful ICD placement on 01/01/17. He started to have nausea and vomiting, non bloody 2 weeks ago. He stopped aspirin 2 weeks ago when he started to have symptoms. Nausea and vomiting continued for about 10 days and now resolved. He also had tarry stool since 1 week ago which eventually improved to Brown stool 2 days ago. He has generalized weakness for the last 2-3 weeks. He also had near syncope this morning. He felt lightheaded and nearly passed out in bath room today which prompted visit to PCP. CBC was checked by PCP and was referred to emergency room due to low hemoglobin. Denies fever. Denies dyspnea. Denies chest pain. Denies NSAIDs. No other blood thinner other than aspirin Last colonoscopy in October 2016 reportedly normal ED course: HH 6.1/18.8. Two units pRBC ordered ,PPI therapy also initiated. GI consulted. Admission requested for severe anemia and upper GIB Review of Systems: Compressive review of systems performed, pertinent positives and negative is included in history of present illness Allergies Coded Allergies: aspirin (Verified Adverse Reaction, Unknown, GI DISTRESS, 01/26/17) currently takes ASA 81mg with food Home Medications Spironolactone 12.5 mg by mouth daily Metformin 500 mg by mouth daily Entresto 49-51 mg 1 tablet by mouth twice a day Carvedilol 12.5 by mouth twice a day Atorvastatin 20 mg daily Aspirin 81 mg by mouth daily, has not taken for 2 weeks PMH Severe non-ischemic cardiomyopathy s/p biventricular ICD HTN DM2 h/o basal cell skin cancer Surgical History Recent ICD placement resection of basal skin cancer Reports: Colonoscopy at [place] within recent months to this admission Family History Grandmother and mother had CHF Grandfather of [place] at age 93 GI ulcerations noted in multiple family members: parent and siblings Social History Hx Alcohol Use: Yes (1-2 shots vodka daily x'years'; stopped approx 6 months ago) Hx Substance Use: No Smoking Status: Never Smoker (denies history tobacco use) Exam Vital Signs Vital Sign - Last Date Time Temp Pulse Resp B/P Pulse Ox O2 Delivery O2 Flow Rate FiO2 02/05/17 15:30 36.7 63 16 143/70 02/05/17 13:40 98 Room Air Exam Gen. patient is lying comfortably in hospital bed HEENT: Pale conjunctiva. Head is normocephalic atraumatic, Pupils equal and reactive, extraocular movements intact, Lungs clear to auscultation bilaterally Heart regular rate and rhythm, grade 2 systolic murmur at LLSB Abdomen soft nontender without hepatosplenomegaly Extremities pulses are present dorsalis pedis posterior tibialis and radial. tSkin is warm and dry there are no rashes, Psych alert and oriented to person place and time Neuro cranial nerves II through XII are grossly intact Lymph: There is no lymphadenopathy appreciated in the cervical supra infraclavicular regions : no martinez Lab and Diagnostics Result Diagram: 02/05/17 1114 02/05/17 1114 Assessment & Plan Mr. Marks is a pleasant 76 year old gentleman with history of severe non- ischemic cardiomyopathy s/p biventricular ICD placement on 01/01/17, non-insulin dependent diabetes mellitus, and HTN, who presented to [facility] with nausea and vomiting of 2 weeks and dark stool of 1 week. # Upper GI bleeding, acute,poa - will give gentle hydration with NS 50ml/h, please discontinue tomorrow -Protonix drip -Discontinue aspirin -Gi Dr Alexander consulted , endoscopy planned for tomorrow 1:30 pm. Gi ordered clears for now # Acute blood loss anemia,poa -Due to GI bleed -Initial hemoglobin 6.1,2 PRBCs ordered # STANISLAV -Initial creatinine 1.48, baseline 1.5 -Gentle rehydration with NS at 50ml/h -We hold Entresto, spironolactone, may consider resuming tomorrow # Nonischemic cardiomyopathy s/p biventricular ICD placement on 01/01/17, Probably alcohol related -recent EF 30-35% -We hold Entresto, spironolactone, may consider resuming tomorrow -Continue carvedilol # DM -hold metformin -Sliding-scale Discussed CODE STATUS,FULL CODE. Names his daughter Lakeisha MART,tel Patient admitted under inpatient status with expected length of stay > 2 midnights for severity of present symptoms, complexities of treatment plan and risk for adverse events GI Prophylaxis: Proton Pump Inhibitor VTE Mechanical Devices: Intermittant Pneumatic CD Time spent 55 minutes copies to: Hyun Obregon Melaku MD Feb 05, 2017 15:43
[2017-02-05] MEDS ORDERED: Glucose 40% Oral Gel 15 Gm Tube PO PRN (17:00)
[2017-02-05] MEDS: Insulin LISPRO 300 Unit/3 mL Inj SUBQ SCH ×2 (17:30→22:00)
[2017-02-05 18:21] LABS: APPEARANCE,URINE HAZY (CLEAR,HAZY); COLOR,URINE YELLOW (YELLOW); OCCULT BLOOD,URINE NEGATIVE (NEGATIVE); UROBILINOGEN,URINE NORMAL (NORMAL)
[2017-02-05] MEDS ORDERED: 0.9% Sodium Chloride 100 ML ONE (20:22)
[2017-02-06] VITALS (13 sets, daily range): BP systolic 100–151; BP diastolic 52–74; PULSE 59–63; RESP 16–18; O2SAT 90–100
[2017-02-06] MEDS: Pantoprazole 8 mg/Hr Infusion IV SCH ×2 (01:13)
--- NOTE | 2017-02-06 03:51 | NUR ---
NPO Patient has been NPO since 299. Patient received second unit of blood this shift with no signs of a reaction. Patient A&OX3. Patient's blood glucose is within normal range. No pain. Rm air at 99%.
[2017-02-06 07:19] LABS: BASOPHILS % (AUTO) 0.3 % (0-3); EOSINOPHILS % (AUTO) 2.1 % (0-5); MONOCYTES % (AUTO) 12.8 % (4-12); Mean Corpuscular Hemoglobin 29.5 pg (27.0-35.0); Mean Corpuscular Volume 88.3 fL (81-100); NEUTROPHILS % (AUTO) 59.4 % (40-74); Platelet Count 286 bil/L (150-400)
[2017-02-06] MEDS ORDERED: 0.9% Sodium Chloride 1,000 ML IV SCH (07:28)
--- NOTE | 2017-02-06 07:37 | PCM.PNMED ---
Subjective Date of Service Feb 06, 2017 Subjective no acute events overnight - plan for egd today at 1300, npo no reports of cp/ sob - afeb, cont w PPI Exam Vital Signs Vital Sign - Last Date Time Temp Pulse Resp B/P Pulse Ox O2 Delivery O2 Flow Rate FiO2 02/06/17 05:43 60 02/06/17 04:44 36.7 16 130/57 96 Room Air Intake and Output 02/05/17 02/05/17 02/06/17 Cumulative From/Thru 15:00 23:00 07:00 02/05/17 10:18 - 02/06/17 05:51 Intake Total 2 ml 780 ml 1952 ml 2734 ml Output Total 400 ml 720 ml 1120 ml Balance 2 ml 380 ml 1232 ml 1614 ml Intake Oral 400 ml 920 ml 1320 ml IV Total 2 ml 80 ml 692 ml 774 ml Packed Cells 300 ml 340 ml 640 ml Output Urine Total 400 ml 720 ml 1120 ml # Bowel Movements 0 0 Exam Gen. patient is lying comfortably in hospital bed, nad HEENT: Pale conjunctiva. Head is normocephalic atraumatic, Pupils equal and reactive, extraocular movements intact Lungs clear to auscultation bilaterally, no w/r/r CV: RR, grade 2 systolic murmur at LLSB Abdomen soft nontender without hepatosplenomegaly Extremities pulses are present dorsalis pedis posterior tibialis and radial. tSkin is warm and dry there are no rashes, Psych alert and oriented to person place and time Neuro cranial nerves II through XII are grossly intact Lymph: There is no lymphadenopathy appreciated in the cervical supra infraclavicular regions : no martinez IVs and Medications Medications Reviewed: Medications were reviewed in detail Lab and Diagnostics Result Diagram: 02/05/17 1114 02/05/17 1114 Assessment & Plan Mr. Marks is a pleasant 76 year old gentleman with history of severe non- ischemic cardiomyopathy s/p biventricular ICD placement on 01/01/17, non-insulin dependent diabetes mellitus, and HTN, who presented to [facility] with nausea and vomiting of 2 weeks and dark stool of 1 week. # Upper GI bleeding, acute,poa - will give gentle hydration with NS 50ml/h, please discontinue tomorrow -Protonix drip -Discontinue aspirin -Gi Dr Aleaxnder consulted , endoscopy planned for tomorrow 1:30 pm. Gi ordered CLD-- NPO now # Acute blood loss anemia,poa -Due to GI bleed -Initial hemoglobin 6.1,2 PRBCs ordered, follow H/H # STANISLAV -Initial creatinine 1.48, baseline 1.5 -Gentle rehydration with NS at 50ml/h, dc later today -We hold Entresto, spironolactone, may consider resuming tomorrow # Nonischemic cardiomyopathy s/p biventricular ICD placement on 01/01/17, Probably alcohol related -recent EF 30-35% -We hold Entresto, spironolactone, may consider resuming tomorrow -Continue carvedilol # DM -hold metformin -Sliding-scale Discussed CODE STATUS,FULL CODE. Names his daughter Lakeisha as POA,tel Patient admitted under inpatient status with expected length of stay > 2 midnights for severity of present symptoms, complexities of treatment plan and risk for adverse events Pain Evaluation: Adequate Pain Control GI Prophylaxis: Proton Pump Inhibitor VTE Mechanical Devices: Intermittant Pneumatic CD Time spent 40 minutes spent with eval and mgmt Reddy Bergeron DO Feb 06, 2017 07:36
[2017-02-06] MEDS: Insulin LISPRO 300 Unit/3 mL Inj SUBQ SCH ×4 (08:00→21:49)
[2017-02-06] MEDS ORDERED: Propofol 10,000 mCg/mL 20 mL Inj ONE (08:51)
[2017-02-06] MEDS ORDERED: Lactated Ringer's 1,000 ML IV SCH (11:21)
[2017-02-06] MEDS ORDERED: Lactated Ringer's 1,000 ML IV ONE (11:21)
--- NOTE | 2017-02-06 11:21 | PCM.HPANE ---
Patient Data Surgeon Admitting Provider:Don Chiu MD Attending Provider:Don Chiu MD Primary Care Physician:Hyun Obregon Other Provider: Reason for Visit Upper Gi Bleed UPPER GI BLEED Ht/WT & BMI Height (Feet): 5 Height (Inches): 9.00 Weight (Kilograms): 80.300 Body Mass Index 26.00 Allergies Coded Allergies: aspirin (Verified Adverse Reaction, Unknown, GI DISTRESS, 01/26/17) currently takes ASA 81mg with food Past Anesthesia History Anesthesia History: Denies:: Abnormal Airway, Anesthesia Reactions, Difficult Intubation, Fam Anesthesia Reaction, Fam Malignant Hypertherm, Malignant Hyperthermia Diabetes History Hx Diabetes?: Yes (on metformin) Current Bedside Blood Glucose: 109 MRSA MRSA: No Medications Home Meds Incl Beta Clarke: Yes Reported Medications Spironolactone 25 Mg Clrnxt74.5 Mg PO Q2DAY #30 TABLET Ref 0 12/31/16 Metformin 500 Mg Blvmyr533 Mg PO BID Ref 0 12/31/16 Sacubitril/Valsartan (Entresto 49 mg-51 mg Tablet)49 Mg-51 Mg Tablet1 Each PO BID 12/31/16 Carvedilol 12.5 Mg Bhmjjt86.5 Mg PO BID Ref 0 12/31/16 Nitroglycerin SL 0.4 Mg Tab.subl0.4 Mg SL 05/29/16 Atorvastatin (Lipitor)20 Mg Bitnop82 Mg PO DAILY Ref 0 05/29/16 Aspirin 81 Mg Ozizvu21 Mg PO DAILY 05/29/16 Discontinued Scripts Ondansetron ODT (Zofran ODT)4 Mg Tablet4 Mg PO Q4H PRN For Nausea #12 TABLET Prov:Amari Montiel MD 01/26/17 History History of ENT Problems?: Yes HEENT History: Positive for:: Dysphagia Hearing Problem Denies:: Abnormal Airway Cataracts Difficult Intubation Sinus Problem Hx of Heart Problems?: Yes Cardiovascular History: Positive for:: AICD Chest Pain (tightness with exertion ) Congestive Heart Failure (chronic systolic HF) Edema (uses diuretic) Hypertension Pacemaker (recent) Denies:: Atrial Fibrillation Valvular Heart Disease Other Cardiac History: HLD Hx of Respiratory Problem?: No Respiratory History: Positive for:: Dyspnea Denies:: Asthma COPD Cough Hemoptysis Pneumonia Tuberculosis Hx Neurologic Problems?: Yes Neurological History: Positive for:: Dizziness (recent, likely r/t anemia) Denies:: CVA Hx of GI Problems?: Yes Gastrointestinal History: Positive for:: Gastrointestinal Bleeding (current issue) Rectal Bleeding (black) Denies:: Cirrhosis Diverticulitis Gall Bladder Disease Gastroesphageal Reflux Hiatal Hernia Liver Disease Other GI Pertinent History: kidney issues-blood tests show abnormalities. no dialysis Hx of Problems?: Yes Other Pertinent History: CKD Male Hx: Denies:: Prostate Problems Scrotal Mass Testicular Surgery (s/p vasectomy and circumcision) Hx Musculoskeletal Problems?: Yes Musculoskeletal History: Positive for:: Back Injury Denies:: Fibromyalgia Joint Replacement Hx of Psycho/Social Problems?: No Psycho Social History: Denies:: Anxiety Hx Depression Hx Surgeries?: Yes (circumcision, vasectomy, skin ca removal, pacemaker insertion) Hx Any Other Health Problems?: Yes Other History: Positive for:: Cancer (skin, basal cell) Hospitalization (broken arms) Denies:: Thyroid Disease History Blood Transfusions: Positive for:: Accept Blood Products? Denies:: Blood Transfusions Hx Diabetes: Yes (on metformin)Bedside Blood Glucose: 109 Hx Alcohol Use: Yes (1-2 shots vodka daily x'years'; stopped approx 6 months ago)Hx Substance Use: No Smoking Status: Never Smoker Have You Smoked inLast 12 mo: No Stop/Bang Treated for Sleep Apnea?: No Do You Have a CPAP Machine?: No S-Snoring: Do You Snore Loudly: No T-Tired: feel tired, fatigued: No O-Obsered: Observed not breath: No P-Blood Pressure: treated: Yes B- Body Mass Index > 35 kg/m2: No A- Age over 50: Yes N- Neck Large Circumference: No G- Gender Male: Yes LAZARO Total Score: 3 Risk Assessment Category Category 1A: Patient has history of documented sleep apnea, and HAS NOT received any narcotic, sedative or anesthesia administration during this stay. Category 1B: Patient has history of documented sleep apnea, and HAS received any narcotic , sedative or anesthesia administration during this stay Category 2: Patient has SUSPECTED Obstructive Sleep Apnea, and HAS received any narcotic , sedative or anesthesia administration during this stay. Category 3: Patient has SUSPECTED Obstructive Sleep Apnea and HAS NOT received narcotic, sedative or anesthesia administration during this stay. Category 4: Outpatient in Procedural Areas with known sleep apnea or who screen positive for High Risk via the STOP/BANG questionnaire. Exam Exam Vital Signs Vital Signs Date Time Temp Pulse Resp B/P Pulse Ox O2 Delivery O2 Flow Rate FiO2 02/06/17 11:07 60 138/67 99 Room Air 02/06/17 10:04 36.8 60 16 137/54 97 Room Air 02/06/17 08:00 60 02/06/17 05:43 60 02/06/17 04:44 36.7 59 16 130/57 96 Room Air Meds/Labs/Diagnostics Admission Meds Current Medications Pantoprazole 80 mg/Sodium Chloride 100 ml @ 10 mls/hr Q10H IV Last administered on 02/06/17 01:13; Start 02/05/17 at 12:50 Sodium Chloride 1,000 ml @ 50 mls/hr Q20H IV Last administered on 02/05/17 15 :11; Start 02/05/17 at 13:24; Stop 02/06/17 at 07:35; Status DC Sodium Chloride (Normal Saline) 250 ml @ STK-MED ONCE .ROUTE Last administered on 02/05/17 16:02; Start 02/05/17 at 15:23; Stop 02/05/17 at 15:24 ; Status DC Carvedilol 12.5 mg 12.5 mg BID PO Last administered on 02/05/17 20:45; Start 02/05/17 at 20:30 Sodium Chloride (Normal Saline) 100 ml @ STK-MED ONCE .ROUTE Last administered on 02/05/17 20:48; Start 02/05/17 at 20:22; Stop 02/05/17 at 20:23 ; Status DC Bedside Blood Glucose: 109 Labs Test 02/05/17 11:14 02/05/17 17:45 02/06/17 06:50 Prothrombin Time 10.0sec (8.1-12.5) Prothromb Time International Ratio 0.94ratio Hold [place] Top Tube Received (Received) Urine Color Yellow (YELLOW) Urine Appearance Hazy (CLEAR,HAZY) Urine pH 6.0 (5.0-8.0) Urine Specific [place] 1.015 (1.003-1.035) Urine Protein Negativemg/dL (NEG,TRACE) Urine Glucose (UA) Negativemg/dL (NEGATIVE) Urine Ketones Negativemg/dL (NEGATIVE) Urine Occult Blood Negative (NEGATIVE) Urine Nitrite Negative (NEGATIVE) Urine Bilirubin Negative (NEGATIVE) Urine Urobilinogen Normalmg/dL (NORMAL) Urine Leukocyte Esterase Negative (NEGATIVE) Urine RBC 0-2/hpf (0-2) Urine WBC 0-5/hpf (0-5) Urine Epithelial Cells Few/hpf (NONE-MOD) Urine Crystals None seen (NONE SEEN) Urine Bacteria Few/hpf (NONE-FEW) Urine Hyaline Casts None/lpf (NONE) Urine Granular Casts None seen (NONE SEEN) Urine Waxy Casts None seen (NONE SEEN) Urine Red Blood Cell Casts None seen (NONE SEEN) Urine White Blood Cell Casts None seen (NONE SEEN) Urine Mucus Present (None Seen) Urine Trichomonas None seen (NONE SEEN) Urine Yeast None (NONE SEEN) Urinalysis Comment None Urine Culture Reflexed Not indicated White Blood Count 7.6th/mm3 (3.8-10.1) Red Blood Count 2.64mil/mm3 (4.40-5.80) Hemoglobin 7.8g/dL (13.8-17.2) Hematocrit 23.3% (41.0-50.0) Mean Corpuscular Volume 88.3fL (81-100) Mean Corpuscular Hemoglobin 29.5pg (27.0-35.0) Mean Corpuscular Hemoglobin Concent 33.5% (32.0-37.0) Red Cell Distribution Width 13.0% (12.3-15.4) Platelet Count 286bil/L (150-400) Neutrophils (%) (Auto) 59.4% (40-74) Lymphocytes (%) (Auto) 25.0% (14-46) Monocytes (%) (Auto) 12.8% (4-12) Eosinophils (%) (Auto) 2.1% (0-5) Basophils (%) (Auto) 0.3% (0-3) Sodium Level 134mEq/L (134-144) Potassium Level 4.3mEq/L (3.5-5.2) Chloride Level 102mEq/L (97-108) Carbon Dioxide Level 19mmol/L (18-29) Blood Urea Nitrogen 21mg/dL (8-27) Creatinine 1.30mg/dL (0.76-1.27) Estimat Glomerular Filtration Rate 57mL/min (>59) Glucose Level 114mg/dL (60-99) Calcium Level 7.0mg/dL (8.5-10.1) Total Bilirubin 1.5mg/dL (0.0-1.2) Aspartate Amino Transf (AST/SGOT) 34U/L (0-50) Alanine Aminotransferase (ALT/SGPT) 16U/L (0-44) Alkaline Phosphatase 59U/L (25-160) Total Protein 5.1g/dL (6.4-8.4) Albumin 2.7g/dL (3.4-5.0) Plan Impression Patient chart reviewed, patient interviewed and anesthestic plan with risks, benefits, and alternatives discussed, and informed consent obtained. NPO Status: >8h Davon Concepcion MD Feb 06, 2017 11:21
[2017-02-06] MEDS ORDERED: Ondansetron 2 mg/mL 2 mL Inj IVPUSH PRN (11:25)
[2017-02-06] MEDS ORDERED: MetoCLOpramide 5 mg/mL 2 mL Inj IVPUSH PRN (11:25)
--- NOTE | 2017-02-06 15:27 | NUR ---
Social Work- Initial Assessment Data: See Initial Assessment. Pt is a 76 year old admitted 02/05/17 for upper GI bleed per H&P. Pt's insurance is [employer] and PCP is DAYLIN Roe. EMR reviewed. SW met with pt at bedside regarding discharge plan, SW role explained. Pt is alert and oriented x3. Pt resides in [facility] where he remains independent with ADLs. Pt states he has been living with his daughter the last week or so. Pt uses no DME and drives. Pt has no HH or SNF history. Pt has no LTC or VA benefits. Pt does not drink. Pt has DPOA, Lakeisha Alba [phone]. SW encouraged pt to bring copy of completed DPOA paperwork to hospital. Pt to discharge home with brother to transport via POV. SW left phone number and plan on whiteboard. No anticipated discharge needs. SW will continue to follow. Assessment: [place]. Plan: Pt to discharge home with brother to transport via POV. No anticipated discharge needs. SW will continue to follow. MARIO Fields Addendum: 02/06/17 at 1533 by JAMA JORDAN SS Amended: Links added.
[2017-02-06] MEDS: Pantoprazole 40 mg ER24 Tablet PO SCH (17:13)
[2017-02-06] MEDS: Sucralfate 1,000 mg Tablet PO SCH ×2 (17:13→21:53)
--- NOTE | 2017-02-06 18:27 | NUR ---
EGD Patient had EGD today. Patient arrived back from Endo alert, oriented denies pain or nausea. Patient has advanced in diet now. Patient still has low H/H of 7.6/23.5 so instructed not to get up with assistance because of possibility of becoming light headed and patient agrees. No bleeding noted .
[2017-02-07 00:03] VITALS: BP 148/68; PULSE 65; RESP 16; O2SAT 98
--- NOTE | 2017-02-07 00:14 | ENDO ---
[address] [address] ENDOSCOPY PROCEDURE PATIENT: NICKY GOLD : 1940 MR#: [id number] ADMIT: 02/05/2017 JOB ID: [id number] DATE OF SERVICE: 02/06/2017 TITLE OF OPERATION: Esophagogastroduodenoscopy with biopsy and Gold probe thermocoagulation. PREOPERATIVE DIAGNOSIS(ES): Melena, hematemesis. POSTOPERATIVE DIAGNOSIS(ES): 1. A 1-cm distal esophageal ulcer, clean based, nonbleeding. 2. Mild nonerosive gastritis. 3. A 5-mm ulcer seen at the pylorus, clean based, nonbleeding, status post biopsy and Gold probe thermocoagulation. ANESTHESIA: Monitored anesthesia care. COMPLICATIONS: None. ESTIMATED BLOOD LOSS: Minimal. DESCRIPTION OF PROCEDURE: After risks and benefits were explained to the patient, informed consent was obtained. After anesthesia was administered, the upper endoscope was then inserted in mouth, intubating the esophagus, stomach, and second portion of duodenum. Mucosa carefully examined. After the procedure was done, the scope withdrawn and procedure terminated. FINDINGS: Upon inspection of the esophagus, there was a 1 cm distal esophageal ulcer, clean based, nonbleeding. Z-line located 40 cm from incisors. Upon entering the stomach, the pylorus appeared distorted. Upon further evaluation, there was a 5 mm clean based, nonbleeding ulcer that was seen right at the pylorus. There was also mild nonerosive gastritis. Retroflexion was normal. Duodenal bulb, first and second portion normal. Biopsies taken at the gastric ulcer, antrum, and body of the stomach and distal esophagus. A gold probe thermocoagulation was used at the gastric ulcer with good hemostasis. IMPRESSIONS: 1. A 1-cm esophageal ulcer, clean based, nonbleeding. 2. Mild nonerosive gastritis. 3. Distorted pylorus with a 5 mm pyloric ulcer, clean based, nonbleeding, status post biopsy and Gold probe thermocoagulation. RECOMMENDATIONS: 1. Okay to start clear liquid diet. 2. Discontinue Protonix drip. 3. Protonix 40 mg by mouth twice a day. 4. Carafate 1 g by mouth four times a day. 5. Repeat EGD in two months to document healing of the esophageal and gastric ulcer. 6. If hemoglobin stable tomorrow morning and no overt signs of bleeding, then okay to discharge home.
--- NOTE | 2017-02-07 03:58 | NUR ---
Bedrest Patient remains in bed this shift related to H&H, currently 8.3 and 25.7, patient denies pain. Blood glucose within normal range.Tele, AV paced 60. Saline locked.
[2017-02-07 05:15] VITALS: BP 150/70; PULSE 60; RESP 18; O2SAT 97
[2017-02-07] MEDS: Sucralfate 1,000 mg Tablet PO SCH ×2 (06:15→12:00)
[2017-02-07 08:00] VITALS: PULSE 60
[2017-02-07] MEDS: Insulin LISPRO 300 Unit/3 mL Inj SUBQ SCH ×2 (08:00→12:01)
[2017-02-07] MEDS: Pantoprazole 40 mg ER24 Tablet PO SCH (08:00)
--- NOTE | 2017-02-07 08:03 | NUR ---
Meds Pt declined to take Lipitor stating "I take that at night."
[2017-02-07 10:47] VITALS: BP 124/64; PULSE 58; RESP 18; O2SAT 97
--- NOTE | 2017-02-07 11:14 | PCM.DIMED ---
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 Please follow up with her primary care physician within one to 2 weeks. You have been prescribed Protonix to take twice daily to reduce stomach acid along with Carafate to take 4 times daily for stomach protection as well - this is necessary because you had a 1 cm esophageal ulcer with evidence of a stomach ulcer as well. Test Results IMPRESSIONS: 1. A 1-cm esophageal ulcer, clean based, nonbleeding. 2. Mild nonerosive gastritis. 3. Distorted pylorus with a 5 mm pyloric ulcer, clean based, nonbleeding, status post biopsy and Gold probe thermocoagulation. RECOMMENDATIONS: 1. Okay to start clear liquid diet. 2. Discontinue Protonix drip. 3. Protonix 40 mg by mouth twice a day. 4. Carafate 1 g by mouth four times a day. 5. Repeat EGD in two months to document healing of the esophageal and gastric ulcer. Patient Instructions Please take iron sulfate twice a day with food for your anemia. Please follow up with her primary care physician within one to 2 weeks. You have been prescribed Protonix to take twice daily to reduce stomach acid along with Carafate to take 4 times daily for stomach protection as well - this is necessary because you had a 1 cm esophageal ulcer with evidence of a stomach ulcer as well. Please plan on repeating your EGD (esophagus scope) evaluation by calling and scheduling a follow-up appointment with Dr. Alexander in 2 months to ensure healing of the ulcers Follow-up plan As above Follow-up Provider: Hyun Obregon Follow-up with PCP in: 1 week Provider: Reddy Alexander MD Follow-up in: 4 weeks (plan for repeat EGD in 2 months) Reddy Bergeron DO Feb 07, 2017 11:14
[2017-02-07] MEDS ORDERED: FERR-83 PO (11:16)
[2017-02-07] MEDS ORDERED: SUCR1TAB30 PO (11:16)
[2017-02-07] MEDS ORDERED: PANT40TA3 PO (11:16)
--- NOTE | 2017-02-07 11:24 | PCM.DC.MED ---
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 Alexander of GI Procedures Invasive Procedures Medication Instructions Please take iron sulfate twice a day with food for your anemia. Please follow up with her primary care physician within one to 2 weeks. You have been prescribed Protonix to take twice daily to reduce stomach acid along with Carafate to take 4 times daily for stomach protection as well - this is necessary because you had a 1 cm esophageal ulcer with evidence of a stomach ulcer as well. Test Results EGD IMPRESSIONS: 1. A 1-cm esophageal ulcer, clean based, nonbleeding. 2. Mild nonerosive gastritis. 3. Distorted pylorus with a 5 mm pyloric ulcer, clean based, nonbleeding, status post biopsy and Gold probe thermocoagulation. RECOMMENDATIONS: 1. Okay to start clear liquid diet. 2. Discontinue Protonix drip. 3. Protonix 40 mg by mouth twice a day. 4. Carafate 1 g by mouth four times a day. 5. Repeat EGD in two months to document healing of the esophageal and gastric ulcer. Patient Instructions Please take iron sulfate twice a day with food for your anemia. Please follow up with her primary care physician within one to 2 weeks. You have been prescribed Protonix to take twice daily to reduce stomach acid along with Carafate to take 4 times daily for stomach protection as well - this is necessary because you had a 1 cm esophageal ulcer with evidence of a stomach ulcer as well. Please plan on repeating your EGD (esophagus scope) evaluation by calling and scheduling a follow-up appointment with Dr. Alexander in 2 months to ensure healing of the ulcers Brief History History of present illness as per admitting physician: Mr. 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 He states he gets epigastric pain when he takes aspirin and listed as allergy. He was off aspirin for many years but started on 6 months ago. He had uneventful ICD placement on 01/01/17. He started to have nausea and vomiting, non bloody 2 weeks ago. He stopped aspirin 2 weeks ago when he started to have symptoms. Nausea and vomiting continued for about 10 days and now resolved. He also had tarry stool since 1 week ago which eventually improved to Brown stool 2 days ago. He has generalized weakness for the last 2-3 weeks. He also had near syncope this morning. He felt lightheaded and nearly passed out in bath room today which prompted visit to PCP. CBC was checked by PCP and was referred to emergency room due to low hemoglobin. Denies fever. Denies dyspnea. Denies chest pain. Denies NSAIDs. No other blood thinner other than aspirin Last colonoscopy in October 2016 reportedly normal ED course: HH 6.1/18.8. Two units pRBC ordered ,PPI therapy also initiated. GI consulted. Admission requested for severe anemia and upper GIB Hospital Course Mr. 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 # Upper GI bleeding, acute,poa An EGD found: IMPRESSIONS: 1. A 1-cm esophageal ulcer, clean based, nonbleeding. 2. Mild nonerosive gastritis. 3. Distorted pylorus with a 5 mm pyloric ulcer, clean based, nonbleeding, status post biopsy and Gold probe thermocoagulation. RECOMMENDATIONS: 1. Okay to start clear liquid diet. 2. Discontinue Protonix drip. 3. Protonix 40 mg by mouth twice a day. 4. Carafate 1 g by mouth four times a day. 5. Repeat EGD in two months to document healing of the esophageal and gastric ulcer. Please plan on repeating your EGD (esophagus scope) evaluation by calling and scheduling a follow-up appointment with Dr. Alexander in 2 months to ensure healing of the ulcers -Protonix drip, changed to Protonix twice daily at that time of discharge and patient will also be discharged with Carafate 4 times a day per GI -Discontinue aspirin, will hold aspirin at discharge and will leave restarting aspirin in 2-3 weeks at discretion of his primary care physician. Patient was instructed to follow up within a week -Gi Dr Alexander consulted , endoscopy 02/06 Patient Instructions Please take iron sulfate twice a day with food for your anemia. Please follow up with her primary care physician within one to 2 weeks. You have been prescribed Protonix to take twice daily to reduce stomach acid along with Carafate to take 4 times daily for stomach protection as well - this is necessary because you had a 1 cm esophageal ulcer with evidence of a stomach ulcer as well. # Acute blood loss anemia,poa -Due to GI bleed -Initial hemoglobin 6.1,2 PRBCs ordered and transfused, no evidence of active bleeding at the time of discharge. Patient was hemodynamically stable with adequate oxygenation. # STANISLAV -Initial creatinine 1.48, creatinine improved to 1.3 at time of discharge. Patient to follow-up with PCP and educated on avoiding anti-inflammatories including NSAIDs -Gentle rehydration with NS at 50ml/h, dc later today -During hospitalizations patient's medications were held including Entresto, spironolactone, and these were restarted at time of discharge # Nonischemic cardiomyopathy s/p biventricular ICD placement on 01/01/17, Probably alcohol related -recent EF 30-35% -Restarted meds as above at discharge -Continue carvedilol # DM -hold metformin for hospitalization the restarted discharge -Sliding-scale while hospitalized Discussed CODE STATUS,FULL CODE. Names his daughter Lakeisha as POA,tel Exam Vital Signs (Last) Date Time Temp Pulse Resp B/P Pulse Ox O2 Delivery O2 Flow Rate FiO2 02/07/17 10:47 36.9 58 18 124/64 97 Room Air Exam Gen. patient is lying comfortably in hospital bed, nad HEENT: Pale conjunctiva. Head is normocephalic atraumatic, Pupils equal and reactive, extraocular movements intact Lungs clear to auscultation bilaterally, no w/r/r CV: RR, grade 2 systolic murmur at LLSB Abdomen soft nontender without hepatosplenomegaly Extremities pulses are present dorsalis pedis posterior tibialis and radial. Psych alert and oriented to person place and time Neuro cranial nerves II through XII are grossly intact Lymph: There is no lymphadenopathy appreciated in the cervical supra infraclavicular regions : no martinez Test 02/05/17 11:14 02/05/17 17:45 02/06/17 06:50 02/06/17 20:56 Prothrombin Time 10.0sec (8.1-12.5) Prothromb Time International Ratio 0.94ratio Hold Winters Top Tube Received (Received) Urine Color Yellow (YELLOW) Urine Appearance Hazy (CLEAR,HAZY) Urine pH 6.0 (5.0-8.0) Urine Specific Hazard 1.015 (1.003-1.035) Urine Protein Negativemg/dL (NEG,TRACE) Urine Glucose (UA) Negativemg/dL (NEGATIVE) Urine Ketones Negativemg/dL (NEGATIVE) Urine Occult Blood Negative (NEGATIVE) Urine Nitrite Negative (NEGATIVE) Urine Bilirubin Negative (NEGATIVE) Urine Urobilinogen Normalmg/dL (NORMAL) Urine Leukocyte Esterase Negative (NEGATIVE) Urine RBC 0-2/hpf (0-2) Urine WBC 0-5/hpf (0-5) Urine Epithelial Cells Few/hpf (NONE-MOD) Urine Crystals None seen (NONE SEEN) Urine Bacteria Few/hpf (NONE-FEW) Urine Hyaline Casts None/lpf (NONE) Urine Granular Casts None seen (NONE SEEN) Urine Waxy Casts None seen (NONE SEEN) Urine Red Blood Cell Casts None seen (NONE SEEN) Urine White Blood Cell Casts None seen (NONE SEEN) Urine Mucus Present (None Seen) Urine Trichomonas None seen (NONE SEEN) Urine Yeast None (NONE SEEN) Urinalysis Comment None Urine Culture Reflexed Not indicated White Blood Count 7.6th/mm3 (3.8-10.1) Red Blood Count 2.64mil/mm3 (4.40-5.80) Mean Corpuscular Volume 88.3fL (81-100) Mean Corpuscular Hemoglobin 29.5pg (27.0-35.0) Mean Corpuscular Hemoglobin Concent 33.5% (32.0-37.0) Red Cell Distribution Width 13.0% (12.3-15.4) Platelet Count 286bil/L (150-400) Neutrophils (%) (Auto) 59.4% (40-74) Lymphocytes (%) (Auto) 25.0% (14-46) Monocytes (%) (Auto) 12.8% (4-12) Eosinophils (%) (Auto) 2.1% (0-5) Basophils (%) (Auto) 0.3% (0-3) Sodium Level 134mEq/L (134-144) Potassium Level 4.3mEq/L (3.5-5.2) Chloride Level 102mEq/L (97-108) Carbon Dioxide Level 19mmol/L (18-29) Blood Urea Nitrogen 21mg/dL (8-27) Creatinine 1.30mg/dL (0.76-1.27) Estimat Glomerular Filtration Rate 57mL/min (>59) Glucose Level 114mg/dL (60-99) Calcium Level 7.0mg/dL (8.5-10.1) Total Bilirubin 1.5mg/dL (0.0-1.2) Aspartate Amino Transf (AST/SGOT) 34U/L (0-50) Alanine Aminotransferase (ALT/SGPT) 16U/L (0-44) Alkaline Phosphatase 59U/L (25-160) Total Protein 5.1g/dL (6.4-8.4) Albumin 2.7g/dL (3.4-5.0) Hemoglobin 8.3g/dL (13.8-17.2) Hematocrit 25.7% (41.0-50.0) Discharge Medications Discharge Medications Atorvastatin (Lipitor) 20 Mg Tablet 20 MG PO DAILY (Reported) Carvedilol (Carvedilol) 12.5 Mg Tablet 12.5 MG PO BID (Reported) Ferrous Sulfate (Ferrous Sulfate) 325 Mg Tablet 325 MG PO BID Prescribed by: IESHA PEREZ DO Metformin (Metformin) 500 Mg Tablet 500 MG PO BID (Reported) Pantoprazole (Pantoprazole DR) 40 Mg Tablet.dr 40 MG PO BIDAC Prescribed by: IESHA PEREZ DO Sacubitril/Valsartan (Entresto 49 mg-51 mg Tablet) 49 Mg-51 Mg Tablet 1 EACH PO BID (Reported) Spironolactone (Spironolactone) 25 Mg Tablet 12.5 MG PO Q2DAY (Reported) Sucralfate (Carafate) 1 Gm Tablet 1,000 MG PO QID Prescribed by: IESHA PEREZ DO Miscellaneous Medications Nitroglycerin SL (Nitroglycerin SL) 0.4 Mg Tab.subl 0.4 MG SL (Reported) Additional med instructions Please take iron sulfate twice a day with food for your anemia. Please follow up with her primary care physician within one to 2 weeks. You have been prescribed Protonix to take twice daily to reduce stomach acid along with Carafate to take 4 times daily for stomach protection as well - this is necessary because you had a 1 cm esophageal ulcer with evidence of a stomach ulcer as well. Followup Plan Follow-up plan As above Patient Instructions Please take iron sulfate twice a day with food for your anemia. Please follow up with her primary care physician within one to 2 weeks. You have been prescribed Protonix to take twice daily to reduce stomach acid along with Carafate to take 4 times daily for stomach protection as well - this is necessary because you had a 1 cm esophageal ulcer with evidence of a stomach ulcer as well. Please plan on repeating your EGD (esophagus scope) evaluation by calling and scheduling a follow-up appointment with Dr. Alexander in 2 months to ensure healing of the ulcers Follow-up Provider: Hyun Obregon Follow-up with PCP in: 1 week Provider: Iesha Alexander MD Follow-up in: 4 weeks (plan for repeat EGD in 2 months) Time spent 45 minutes was spent with evaluation discharge of this patient. Greater than 50 % of time was spent [id number] with counseling copies to: Hyun Obregon; Iesha Alexander MD, David DO Feb 07, 2017 11:18
--- NOTE | 2017-02-07 11:32 | NUR ---
Social Work- Readiness for Discharge Data: EMR reviewed. Pt is on day 2 of hospitalization for upper GI bleed per H&P. Pt has completed an endoscopy. Per RN notes, pt is independent in his room. Pt's diet has advanced. Pt to discharge home with brother to transport via POV. No anticipated discharge needs. SW will continue to follow. Assessment: Pt who is independent at base. Plan: Pt to discharge home with brother to transport via POV. No anticipated discharge needs. SW will continue to follow. MARIO Fields
--- NOTE | 2017-02-07 13:31 | NUR ---
Discharge Pt discharged at 1320 in w/c to private vehicle with family. Pt has no s/s of bleeding. VSS, A&O x 3, CH. Bilateral IV's removed intact. Pt educated on iron-rich diet and how to take new medications. Telemetry removed. Pt has discharge instructions, care notes and all rx's. All questions answered and has all belongings.
--- NOTE | 2017-02-07 13:41 | NUR ---
Social Work-Discharge Data: EMR reviewed. Pt is on day 2 of hospitalization for upper GI bleed per H&P. Pt has completed an endoscopy. Per RN notes, pt is independent in his room. Pt's diet has advanced. Pt to discharge home with brother to transport via POV. No discharge needs. Assessment: Pt who is independent at base. Plan: Pt to discharge home with brother to transport via POV. No discharge needs. Gemma Gates MSW
--- NOTE | 2017-02-10 14:53 | PATH ---
SURGICAL PATHOLOGY Attending Physician:Reddy Alexander MD CASE STATUS: Signed Out PATIENT NAME: NICKY GOLD PID: [id number] : 1940 DATE COLLECTED:02/06/2017 21:41 SPECIMEN: 1: Gastric, Biopsy 2: Stomach, Antrum, Biopsy 3: Gastric, Biopsy 4: Esophagus, Biopsy CLINICAL HISTORY: 1). GASTRIC ULCER 2). ANTRUM BIOPSY 3). GASTRIC BODY BIOPSY 4). DISTAL ESOPHAGUS ULCER BIOPSY FINAL DIAGNOSIS: 1.GASTRIC ULCER, BIOPSY: BLOOD AND SMALL SUPERFICIAL FRAGMENTS OF BENIGN GASTRIC MUCOSA. No evidence of malignancy. 2.GASTRIC ANTRUM, BIOPSY: CHRONIC ACTIVE GASTRITIS WITH INTESTINAL METAPLASIA. No evidence of malignancy or dysplasia. 3.GASTRIC BODY, BIOPSY: GASTRIC CORPUS WITH CHRONIC ACTIVE GASTRITIS. POSITIVE FOR HELICOBACTER ORGANISMS. Negative for intestinal metaplasia. No evidence of malignancy or dysplasia. 4.DISTAL ESOPHAGUS ULCER, BIOPSY: GRANULATION TISSUE. No evidence of malignancy. Negative for intestinal metaplasia. ICD10 code B96.81 K20.9 GROSS DESCRIPTION: The specimen is received in four formalin filled containers labeled with the patient's name. 1). The specimen is sublabeled "gastric ulcer" and consists of an extremely tiny less than 0.1 CM portion of tissue which is entirely submitted in cassette 1A. 2). The specimen is sublabeled "antrum" and consists of 2 portions of tissue which aggregate to 0.3 x 0.3 x 0.2 CM. The specimen is entirely submitted in cassette 2A. 3). The specimen is sublabeled "gastric body" and consists of 2 portions of tissue which aggregate to 0.4 x 0.3 x 0.3 CM. The specimen is entirely submitted in cassette 3A. 4). The specimen is sublabeled "distal esophagus ulcer" and consists of a 0.2 x 0.2 x 0.2 CM portion of tissue which is entirely submitted in cassette 4A. 02/06/2017 DAC MICRO DESCRIPTION: 2. & 3. The lamina propria of the gastric corpus and antrum is expanded by large numbers of acute and chronic inflammatory cells. An immunostain for Helicobacter organisms is done because of the acute inflammation. Rare organisms are identified in the gastric body. The gastric antrum is negative for Helicobacter organisms. 4. Acute inflammatory exudate is associated with what appears to be granulation tissue. However, immunocytochemistry is done to be certain that the tissue is granulation tissue and not infiltrating carcinoma. Sections, along with appropriate controls, are incubated with the following antibodies: Pankeratin (MARYANNE):Cells of interest negative CD31:Cells of interest positive The findings are consistent with granulation tissue. This test was developed and its performance characteristics determined by [employer]. It has not been cleared or approved by the U. S. Food and Drug Administration. The FDA has determined that such clearance or approval is not necessary. This test is used for clinical purposes. It should not be regarded as investigational or for research. ICD-9 CODES: CPT CODES: 1: 73126 2: 60166, 36452 3: 07299, 45922 4: 78762, 46733, 11197 Electronically Signed Out Percy Aiken MD [facility] [address], [place] [address] Technical component performed at [facility], [facility] [address], [place], [address]
[2017-04-11] MEDS ORDERED: FUR20 PO (16:21)
== END 2017-02-07 13:23 | disposition home or self-care (01) | DRG 378 ==
LOC: SED 10:09 → OSC 13:08
PROVIDERS: ADMIT Internal Medicine; ATTEND Internal Medicine
PROC: 30233N1 Transfusion of Nonautologous Red Blood Cells into Peripheral Vein, Percutaneous Approach (ICD-10-PCS; 2017-02-05)
PROC: 3E0G8GC Introduction of Other Therapeutic Substance into Upper GI, Via Natural or Artificial Opening Endoscopic (ICD-10-PCS; 2017-02-06)
PROC: 0DB38ZX Excision of Lower Esophagus, Via Natural or Artificial Opening Endoscopic, Diagnostic (ICD-10-PCS; principal; 2017-02-06 13:30)
PROC: 0DB68ZX Excision of Stomach, Via Natural or Artificial Opening Endoscopic, Diagnostic (ICD-10-PCS; 2017-02-06 13:30)
DX: K25.4 Chronic or unspecified gastric ulcer with hemorrhage (principal); I42.8 Other cardiomyopathies; D62 Acute posthemorrhagic anemia; N17.9 Acute kidney failure, unspecified; K22.10 Ulcer of esophagus without bleeding; E11.9 Type 2 diabetes mellitus without complications; I10 Essential (primary) hypertension; Z79.84 Long term (current) use of oral hypoglycemic drugs; Z79.82 Long term (current) use of aspirin; Z95.810 Presence of automatic (implantable) cardiac defibrillator; Z72.89 Other problems related to lifestyle

== ENCOUNTER 2017-04-16 10:06 | Day surgery (SDC) | payer MEDICARE ==
--- NOTE | 2017-04-15 16:38 | PCM.HPANE ---
Patient Data Surgeon Admitting Provider: Attending Provider:Reddy Alexander MD Primary Care Physician:Hyun Obregon Other Provider: Reason for Visit Gardiner's Esophageal Ht/WT & BMI Body Mass Index Allergies Coded Allergies: aspirin (Verified Adverse Reaction, Unknown, GI DISTRESS, 04/16/17) currently takes ASA 81mg with food Past Anesthesia History Anesthesia History: Denies:: Abnormal Airway, Anesthesia Reactions, Difficult Intubation, Fam Anesthesia Reaction, Fam Malignant Hypertherm, Malignant Hyperthermia Diabetes History Hx Diabetes?: Yes (on metformin) MRSA MRSA: No Medications Active Scripts Ferrous Sulfate 325 Mg [id number] Mg PO BID #120 TABLET Ref 1 Prov:Reddy Bergeron DO 02/07/17 Sucralfate (Carafate)1 Gm Tablet1,000 Mg PO QID 90 Days Prov:Reddy Bergeron DO 02/07/[address] 40 Mg Tablet.dr40 Mg PO BIDAC gastric and esophageal ulcer 90 Days Prov:Reddy Bergeron DO 02/07/17 Reported Medications Furosemide 20 Mg Tab20 Mg PO DAILY 30 Days Ref 0 04/11/17 Metformin 500 Mg [id number] Mg PO BID Ref 0 12/31/16 Sacubitril/Valsartan (Entresto 49 mg-51 mg Tablet)49 Mg-51 Mg Tablet1 Each PO BID 12/31/16 Carvedilol 12.5 Mg Onxykh55.5 Mg PO BID Ref 0 12/31/16 Nitroglycerin SL 0.4 Mg Tab.subl0.4 Mg SL 05/29/16 Atorvastatin (Lipitor)20 Mg [id number] Mg PO DAILY Ref 0 05/29/16 Discontinued Reported Medications Spironolactone 25 Mg Wnkyfr19.5 Mg PO Q2DAY #30 TABLET Ref 0 12/31/16 History History of ENT Problems?: Yes HEENT History: Positive for:: Dysphagia Hearing Problem Denies:: Abnormal Airway Cataracts Difficult Intubation Sinus Problem Denture Type: Full- Upper Teeth Condition: Within Normal Limits Hx of Heart Problems?: Yes Cardiovascular History: Positive for:: AICD Chest Pain (tightness with exertion ) Congestive Heart Failure (chronic systolic HF) Edema (uses diuretic) Hypertension Pacemaker (recent) Denies:: Atrial Fibrillation Valvular Heart Disease Hx of Respiratory Problem?: No Respiratory History: Positive for:: Dyspnea Denies:: Asthma COPD Cough Hemoptysis Pneumonia Tuberculosis Hx Neurologic Problems?: Yes Neurological History: Positive for:: Dizziness (recent, likely r/t anemia) Denies:: CVA Hx of GI Problems?: Yes Hx of Problems?: Yes Male Hx: Denies:: Prostate Problems Scrotal Mass Testicular Surgery (s/p vasectomy and circumcision) Hx Musculoskeletal Problems?: Yes Musculoskeletal History: Positive for:: Back Injury Denies:: Joint Replacement Hx of Psycho/Social Problems?: No Psycho Social History: Denies:: Anxiety Hx Depression Hx Surgeries?: Yes (circumcision, vasectomy, skin ca removal, pacemaker insertion) Hx Any Other Health Problems?: Yes Other History: Positive for:: Cancer (skin, basal cell) Hospitalization (broken arms) Denies:: Thyroid Disease History Blood Transfusions: Denies:: Blood Transfusions Hx Diabetes: Yes (on metformin) Hx Alcohol Use: Yes (1-2 shots vodka daily x'years'; stopped approx 6 months ago)Hx Substance Use: No Smoking Status: Never Smoker Have You Smoked inLast 12 mo: No Stop/Bang Risk Assessment Category Category 1A: Patient has history of documented sleep apnea, and HAS NOT received any narcotic, sedative or anesthesia administration during this stay. Category 1B: Patient has history of documented sleep apnea, and HAS received any narcotic , sedative or anesthesia administration during this stay Category 2: Patient has SUSPECTED Obstructive Sleep Apnea, and HAS received any narcotic , sedative or anesthesia administration during this stay. Category 3: Patient has SUSPECTED Obstructive Sleep Apnea and HAS NOT received narcotic, sedative or anesthesia administration during this stay. Category 4: Outpatient in Procedural Areas with known sleep apnea or who screen positive for High Risk via the STOP/BANG questionnaire. Exam Exam General Appearance: Alert, Oriented X3, Cooperative HEENT/AIRWAY: MP 2, Neck Movement (FROM), Mouth Opening (WNL) Lungs: Clear to Auscultation Heart: Exam Unremarkable Plan Impression Patient chart reviewed, patient interviewed and anesthestic plan with risks, benefits, and alternatives discussed, and informed consent obtained. ASA Physical Status: ASA2 Mod Systemic Disease Anesthetic Plan: GA Bene/Risks/Altern/Consents: Yes HP Complete Prior to Induction: Yes Demetri Martino MD April 15, 2017 16:38
[~2017-04-16] VITALS: Ht 175.3 cm; Wt 86.2 kg
[~2017-04-16 10:06] MED LIST changes: -ASPI-973 PO; +FERR-83 PO; +FUR20 PO; +Lactated Ringer's 1,000 ML IV ONE; -ONDA4TAB9 PO; +PANT40TA3 PO; -SPIR25TA3 PO; +SUCR1TAB30 PO
[2017-04-16] MEDS ORDERED: Propofol 10,000 mCg/mL 20 mL Inj ONE (10:07)
[2017-04-16 10:43] VITALS: BP 151/75; PULSE 60; RESP 16; O2SAT 99
[2017-04-16] MEDS ORDERED: Lactated Ringer's 1,000 ML IV SCH (11:21)
[2017-04-16 11:22] VITALS: BP 136/74; PULSE 60; RESP 15; O2SAT 98
--- NOTE | 2017-04-16 11:22 | PCM.ANEP1 ---
Post Anesthesia PACU Phase 1 Assessment Vital Signs Vital Signs Date Time Temp Pulse Resp B/P Pulse Ox O2 Delivery O2 Flow Rate FiO2 04/16/17 10:43 36.3 60 16 151/75 99 Room Air Anesthetic Administered: GA Level of Alertness: Awake, talking CH's with Equal Strength: Yes Pain: No Nausea or Vomiting: No CV Function & Hydration Stable: No Airway Device: Oxygen Delivery: Room Air Lungs: Clear to Auscultation PACU Phase 2 Assessment Complications: No Follow up Care: No Patient Instructions Provided: N/A Demetri Martino MD April 16, 2017 11:22
[2017-04-16] MEDS ORDERED: Ondansetron 2 mg/mL 2 mL Inj IVPUSH PRN (11:25)
[2017-04-16] MEDS ORDERED: MetoCLOpramide 5 mg/mL 2 mL Inj IVPUSH PRN (11:25)
[2017-04-16 12:01] VITALS: BP 132/68; PULSE 60; RESP 16; O2SAT 100
--- NOTE | 2017-04-16 12:44 | ENDO ---
[address] [address] ENDOSCOPY PROCEDURE PATIENT: NICKY GOLD : 1940 MR#: [id number] ADMIT: 04/16/2017 JOB ID: [id number] DATE OF SERVICE: 04/16/2017 PROCEDURE: Esophagogastroduodenoscopy. PREOPERATIVE DIAGNOSIS: History esophageal and gastric ulcer. POSTOPERATIVE DIAGNOSIS: Completely healed esophageal and gastric ulcer. ANESTHESIA: Monitored anesthesia care. COMPLICATION: None. BLOOD LOSS: Minimal. DESCRIPTION OF PROCEDURE: After risks and benefits were explained to the patient, informed consent was obtained. After anesthesia was administered, upper endoscope was then inserted into the mouth and into the esophagus, stomach, second portion of the duodenum, and mucosa carefully examined. After procedure was done, the scope was withdrawn and procedure terminated. FINDINGS: Upon inspection of esophagus, the esophagus appeared normal without masses, ulcers, or lesions. The previous ulcer and esophagus was completely healed. Z-line located 40 cm from incisors. Upon entry into the stomach, the stomach was also normal without masses, ulcers, or lesions. The ulcer that was located in the pylorus has also completely healed. Retroflexion was normal. Duodenal bulb, first and second portion were normal. IMPRESSIONS: Normal upper endoscopy with completely healed esophageal and gastric ulcer. RECOMMENDATIONS: 1. Discontinue Carafate. 2. Decrease Protonix to 40 mg by mouth once a day. 3. follow up gi clinic as needed MIGUEL A
== END 2017-04-16 23:59 | disposition home or self-care (01) ==
LOC: END 10:06
PROVIDERS: ATTEND Internal Medicine Gastroenterology
DX: K22.10 Ulcer of esophagus without bleeding (principal); K25.9 Gastric ulcer, unspecified as acute or chronic, without hemorrhage or perforation; I42.8 Other cardiomyopathies; I25.118 Atherosclerotic heart disease of native coronary artery with other forms of angina pectoris; I44.7 Left bundle-branch block, unspecified; I13.0 Hypertensive heart and chronic kidney disease with heart failure and stage 1 through stage 4 chronic kidney disease, or unspecified chronic kidney disease; N18.9 Chronic kidney disease, unspecified; I50.22 Chronic systolic (congestive) heart failure; E11.9 Type 2 diabetes mellitus without complications; E78.5 Hyperlipidemia, unspecified; Z79.84 Long term (current) use of oral hypoglycemic drugs; Z95.810 Presence of automatic (implantable) cardiac defibrillator
CPT/HCPCS: 43235; J7120